=== PATIENT | female | born 1950 | race African-American/Black ===

== ENCOUNTER → 2016-08-26 | Outpatient (CLI) | payer OTHER ==
[~2016-08-26] MED LIST: ACET-66 PO; ALBU8.5H IH; AMLO-512 PO; ATEN50TA PO; ATOR40TA28 PO; FENO160 PO; FURO40 PO; IPRAHFA IH; LISI-662 PO; MOME13HF IH; MONT10TA21 PO; TERA1 PO
== END | disposition home or self-care (01) ==
LOC: RADPV 09:40
PROVIDERS: ATTEND Internal Medicine Nephrology
DX: N18.9 Chronic kidney disease, unspecified (principal); N28.1 Cyst of kidney, acquired
CPT/HCPCS: 76770

== ENCOUNTER 2016-11-18 07:34 | Day surgery (SDC) | payer OTHER ==
[~2016-11-18] VITALS: Ht 170.2 cm; Wt 58.6 kg
[~2016-11-18 07:34] MED LIST changes: -ACET-66 PO; -ALBU8.5H IH; -TERA1 PO
[2016-11-18] MEDS ORDERED: SODIUM CHLORIDE 0.9% 1,000 ML IV ONE ×2 (08:01→08:30)
[2016-11-18 08:34] LABS: CALCIUM, TOTAL 8.9 mg/dL (8.8-10.5); CREATININE 2.71 mg/dL (0.60-1.30); POTASSIUM 4.1 mmol/L (3.5-5.1)
[2016-11-18 08:41] LABS: INR 1.1 (0.9-1.1); PROTHROMBIN TIME 11.4 SEC (9.4-11.6)
[2016-11-18] MEDS ORDERED: ALBU8.5H IH (08:43)
[2016-11-18] MEDS ORDERED: TERA1 PO (08:43)
[2016-11-18] MEDS ORDERED: ACET-66 PO (08:43)
[2016-11-18] MEDS ORDERED: GELATIN SPONGE,ABSORBABLE 12-7 MM TP ONE (10:46)
[2016-11-18] MEDS ORDERED: LIDOCAINE HCL/PF 1% 30 ML VIAL ONE (10:46)
[2016-11-18] MEDS ORDERED: FentaNYL CITRATE-PF 100 MCG/2 ML VIAL ONE (10:46)
[2016-11-18] MEDS ORDERED: MIDAZOLAM HCL 2 MG/2 ML VIAL ONE (10:46)
[2016-11-18] MEDS ORDERED: MIDAZOLAM HCL 2 MG/2 ML VIAL IVP ONE (11:12)
[2016-11-18] MEDS ORDERED: FentaNYL CITRATE-PF 100 MCG/2 ML VIAL IVP ONE (11:13)
== END 2016-11-18 14:30 | disposition home or self-care (01) ==
LOC: SDS 07:34 → EDSTATUS 10:00 → SDS 14:30
PROVIDERS: ATTEND Internal Medicine Nephrology
DX: I12.9 Hypertensive chronic kidney disease with stage 1 through stage 4 chronic kidney disease, or unspecified chronic kidney disease (principal); N18.3 Chronic kidney disease, stage 3 (moderate); J44.9 Chronic obstructive pulmonary disease, unspecified; Z79.01 Long term (current) use of anticoagulants; Z87.09 Personal history of other diseases of the respiratory system; Z87.442 Personal history of urinary calculi
CPT/HCPCS: 36415; 50200; 77012; 80048; 85610; 85730; 88300; J2250; J3010; J7030; J3490

== ENCOUNTER 2018-01-30 17:04 | Emergency (ER) | payer MEDICARE, OTHER ==
[2018-01-30] VITALS (11 sets, daily range): BP systolic 140–169; BP diastolic 55–96
[~2018-01-30] VITALS: Ht 167.6 cm; Wt 54.1 kg
[~2018-01-30 17:04] MED LIST changes: -AMLO-512 PO; -ATEN50TA PO; +CARV6 PO; -FENO160 PO; -FURO40 PO; -IPRAHFA IH; -LISI-662 PO; +LOSA100T29 PO; +MINO2.5T3 PO; -MOME13HF IH; +NIFE60TA81 PO; +PANT40TA25 PO; +SEVEC800 PO; +TICA90TA PO
[2018-01-30 18:31] LABS: BASOPHILS % (AUTO) 0.6 % (0.0-2.0); EOSINOPHILS % (AUTO) 6.4 % (1.0-6.0); HEMATOCRIT 23.3 % (36-46); HEMOGLOBIN 7.9 g/dL (12.0-16.0); LYMPHOCYTES # (AUTO) 2.1 K/uL (1.0-4.8); LYMPHOCYTES % (AUTO) 19.4 % (22.0-44.0); MEAN CORPUSCULAR HEMOGLOBIN 31.5 pg (26.0-34.0); MEAN CORPUSCULAR HGB CONC 33.8 G/dL (31.0-37.0); MEAN CORPUSCULAR VOLUME 93 fL (80-100); MONOCYTES % (AUTO) 9.6 % (2.0-9.0); PLATELET COUNT (AUTO) 477 K/uL (150-450); RED CELL DISTRIBUTION WIDTH 17.1 % (11.5-14.5)
[2018-01-30 18:43] LABS: ANION GAP 11 mmol/L (8-16); CALCIUM, TOTAL 8.6 mg/dL (8.8-10.5); CARBON DIOXIDE 31 mmol/L (22-29); CHLORIDE 98 mmol/L (98-107); CREATININE 7.15 mg/dL (0.60-1.30); GLOMERULAR FILTR. RATE CALC 7 mL/min (>60); GLUCOSE,RANDOM 93 mg/dL (70-110); POTASSIUM 4.5 mmol/L (3.5-5.1); SODIUM SERUM 140 mmol/L (136-145); UREA NITROGEN, BLOOD 32 mg/dL (7-18)
[2018-01-30 18:46] LABS: PROTHROMBIN TIME 10.9 SEC (9.4-11.6)
[2018-01-30 18:56] LABS: ALANINE AMINOTRANSFERASE 14 U/L (12-78); ALBUMIN 3.6 g/dL (3.4-5.0); ALKALINE PHOSPHATASE 64 U/L (46-116); ASPARTATE AMINOTRANSFERASE 14 U/L (15-37); B-TYPE NATRIURETIC PEPTIDE 628 pg/mL (0-100); BILIRUBIN,TOTAL 0.4 mg/dL (0.1-1.0); CREATINE KINASE, TOTAL 63 U/L (26-192); TOTAL PROTEIN, SERUM 6.6 g/dL (6.4-8.2)
[2018-01-30] MEDS ORDERED: ACETAMINOPHEN 325 MG TABLET PO ONE (19:30)
[2018-01-30] MEDS ORDERED: SODIUM CHLORIDE 0.9% 1,000 ML IV ONE (19:43)
[2018-01-31 00:03] VITALS: BP 169/87
== END 2018-01-31 00:09 | disposition home or self-care (01) ==
LOC: EMS 17:04
DX: D64.9 Anemia, unspecified (principal); I12.0 Hypertensive chronic kidney disease with stage 5 chronic kidney disease or end stage renal disease; N18.6 End stage renal disease; F17.210 Nicotine dependence, cigarettes, uncomplicated; Z99.2 Dependence on renal dialysis
CPT/HCPCS: 36430; 71045; 80053; 82550; 83880; 84484; 85025; 85610; 85730; 86850; 86900; 86901; 86920; 93005; 99285; J7030; P9016

== ENCOUNTER 2018-03-13 18:17 | Emergency (ER) | payer MEDICARE, OTHER ==
[~2018-03-13] VITALS: Ht 167.6 cm; Wt 0.6 kg
[~2018-03-13 18:17] MED LIST changes: +FLUC100T PO; +LEVO750T21 PO; +LOSA100T20 PO; -LOSA100T29 PO; +PRED20 PO
[2018-03-13 19:05] LABS: BASOPHILS % (AUTO) 0.8 % (0.0-2.0); HEMATOCRIT 21.2 % (36-46); LYMPHOCYTES % (AUTO) 20.4 % (22.0-44.0); MEAN CORPUSCULAR HEMOGLOBIN 29.9 pg (26.0-34.0); MEAN CORPUSCULAR HGB CONC 33.2 G/dL (31.0-37.0); MEAN CORPUSCULAR VOLUME 90 fL (80-100); MONOCYTES # (AUTO) 1.1 K/uL (0.1-1.0); MONOCYTES % (AUTO) 11.5 % (2.0-9.0); NEUTROPHILS # (AUTO) 5.7 K/uL (1.8-7.7); NEUTROPHILS % (AUTO) 57.3 % (40.0-70.0); PLATELET COUNT (AUTO) 590 K/uL (150-450); RED BLOOD CELL COUNT(AUTO) 2.35 MIL/uL (4.00-5.20)
[2018-03-13 19:18] LABS: CREATININE 7.47 mg/dL (0.60-1.30); POTASSIUM 3.9 mmol/L (3.5-5.1)
[2018-03-13 19:27] LABS: ALBUMIN 3.2 g/dL (3.4-5.0); BILIRUBIN,TOTAL 0.3 mg/dL (0.1-1.0); TOTAL PROTEIN, SERUM 6.4 g/dL (6.4-8.2)
[2018-03-13 19:49] LABS: APPEARANCE,URINE CLOUDY (CLEAR); BILIRUBIN,URINE NEGATIVE (NEGATIVE); GLUCOSE, URINE (UA) NEGATIVE (NEGATIVE); KETONES,URINE NEGATIVE (NEGATIVE); LEUKOCYTE ESTERASE ,URINE TRACE (NEGATIVE); NITRATE,URINE NEGATIVE (NEGATIVE); OCCULT BLOOD,URINE SMALL (NEGATIVE); PROTEIN,URINE SEE CONFIRM (NEGATIVE); UROBILINOGEN,URINE 0.2 mg/dL (<=1.0)
[2018-03-13 21:05] LABS: SULFOSALICYLIC ACID,URINE 4+ (Negative)
[2018-03-13 21:06] LABS: BACTERIA,URINE Few /HPF (None Seen); RBC,URINE 0-2 /HPF (0-2); SQUAMOUS EPITHELIAL CELL,UR Moderate /LPF (None Seen)
[2018-03-13] MEDS ORDERED: SODIUM CHLORIDE 0.9% 1,000 ML IV ONE (21:35)
[2018-03-13 21:50] VITALS: BP 145/57
[2018-03-13 22:05] VITALS: BP 140/76
[2018-03-13 22:20] VITALS: BP 149/84
[2018-03-13 22:50] VITALS: BP 141/79
[2018-03-13 23:20] VITALS: BP 143/74
[2018-03-13 23:50] VITALS: BP 137/57
[2018-03-14 00:20] VITALS: BP 141/69
[2018-03-14 00:25] VITALS: BP 141/69
== END 2018-03-14 00:37 | disposition home or self-care (01) ==
LOC: EMS 18:18
DX: D64.9 Anemia, unspecified (principal); I12.0 Hypertensive chronic kidney disease with stage 5 chronic kidney disease or end stage renal disease; N18.6 End stage renal disease; Z99.2 Dependence on renal dialysis; Z88.8 Allergy status to other drugs, medicaments and biological substances; Z79.2 Long term (current) use of antibiotics; Z79.899 Other long term (current) drug therapy; J44.9 Chronic obstructive pulmonary disease, unspecified; Z98.890 Other specified postprocedural states
CPT/HCPCS: 36415; 36430; 80053; 81001; 82550; 83880; 84484; 85025; 86850; 86900; 86901; 86920; 93005; 99285; J7030; P9016

== ENCOUNTER 2018-04-06 06:43 | Inpatient (IN) | payer MEDICARE, OTHER ==
[~2018-04-06] VITALS: Ht 167.6 cm; Wt 56.9 kg
[2018-04-06] MEDS ORDERED: ADV250 IH (06:53)
[2018-04-06] MEDS ORDERED: TICA90TA PO (06:53)
[2018-04-06] MEDS ORDERED: ALBU8HFA IH (06:53)
[2018-04-06] MEDS ORDERED: NITROGLYCERIN 2% (1 GM=INCH) PACKET TP ONE (07:00)
[2018-04-06] MEDS ORDERED: ALBUTEROL SULFATE 5 MG/ML 20 ML NEB SOLN [BULK] NEB ONE (07:00)
[2018-04-06] MEDS ORDERED: IPRATROPIUM BROMIDE 0.5 MG/2.5 ML NEB SOLUTION NEB ONE (07:00)
[2018-04-06] MEDS ORDERED: MethylPREDNISolone SOD SUCC 125 MG/2 ML VIAL IVP ONE (07:00)
[2018-04-06] MEDS ORDERED: 0.9% SODIUM CHLORIDE 5 ML NEB SOLUTION NEB ONE (07:10)
[2018-04-06 07:39] LABS: BASOPHILS % (AUTO) 0.7 % (0.0-2.0); EOSINOPHILS % (AUTO) 4.7 % (1.0-6.0); HEMATOCRIT 30.6 % (36-46); HEMOGLOBIN 10.1 g/dL (12.0-16.0); LYMPHOCYTES # (AUTO) 0.9 K/uL (1.0-4.8); LYMPHOCYTES % (AUTO) 5.8 % (22.0-44.0); MEAN CORPUSCULAR HEMOGLOBIN 29.9 pg (26.0-34.0); MEAN CORPUSCULAR HGB CONC 32.9 G/dL (31.0-37.0); MEAN CORPUSCULAR VOLUME 91 fL (80-100); MONOCYTES # (AUTO) 0.6 K/uL (0.1-1.0); MONOCYTES % (AUTO) 3.6 % (2.0-9.0); NEUTROPHILS # (AUTO) 13.4 K/uL (1.8-7.7); PLATELET COUNT (AUTO) 359 K/uL (150-450); RED BLOOD CELL COUNT(AUTO) 3.37 MIL/uL (4.00-5.20); RED CELL DISTRIBUTION WIDTH 16.7 % (11.5-14.5)
[2018-04-06 07:43] LABS: NEUTROPHILS % (AUTO) 85.2 % (40.0-70.0)
[2018-04-06 07:45] LABS: CALCIUM, TOTAL 8.3 mg/dL (8.8-10.5); CREATININE 8.58 mg/dL (0.60-1.30); POTASSIUM 5.1 mmol/L (3.5-5.1)
[2018-04-06 08:10] LABS: ALBUMIN 3.6 g/dL (3.4-5.0); BILIRUBIN,TOTAL 0.6 mg/dL (0.1-1.0); TOTAL PROTEIN, SERUM 7.8 g/dL (6.4-8.2)
[2018-04-06] MEDS ORDERED: CARVEDILOL 3.125 MG TABLET PO ONE (08:30)
[2018-04-06] MEDS ORDERED: NIFEdipine 60 MG ER TABLET PO ONE (08:30)
[2018-04-06] MEDS ORDERED: ONDANSETRON HCL 4 MG/2 ML VIAL IVP PRN (08:30)
[2018-04-06] MEDS ORDERED: LOSARTAN POTASSIUM 50 MG TABLET PO ONE (08:30)
[2018-04-06] MEDS ORDERED: ACETAMINOPHEN 325 MG TABLET PO PRN ×2 (08:30→10:15)
[2018-04-06] MEDS ORDERED: BISACODYL 10 MG RECTAL RECTAL SUPPOSITORY PR PRN (10:15)
[2018-04-06 10:54] VITALS: BP 196/97
[2018-04-06] MEDS ORDERED: SEVEC800 PO (11:00)
[2018-04-06] MEDS ORDERED: ASPI81 PO (11:00)
[2018-04-06] MEDS ORDERED: LANT500 PO (11:00)
[2018-04-06] MEDS ORDERED: ALBUTEROL SULFATE 2.5 MG/0.5 ML NEB SOLUTION NEB SCH (11:00)
[2018-04-06] MEDS ORDERED: IPRATROPIUM BROMIDE 0.5 MG/2.5 ML NEB SOLUTION NEB SCH (11:00)
[2018-04-06] MEDS: CloNIDine HCL 0.1 MG TABLET PO PRN (11:03)
[2018-04-06] MEDS ORDERED: SODIUM CHLORIDE 0.9% 100 ML ONE (11:29)
[2018-04-06] MEDS: AZITHROMYCIN 500 MG/NS 250 ML IV SCH (11:33)
[2018-04-06] MEDS: MethylPREDNISolone SOD SUCC 125 MG/2 ML VIAL IVP SCH ×3 (11:33→23:25)
[2018-04-06] MEDS: ALBUTEROL SULFATE 2.5 MG/0.5 ML NEB SOLUTION NEB SCH ×4 (13:46→23:33)
[2018-04-06] MEDS: IPRATROPIUM BROMIDE 0.5 MG/2.5 ML NEB SOLUTION NEB SCH ×4 (13:47→23:33)
[2018-04-06 15:37] VITALS: BP 158/83
[2018-04-06] MEDS ORDERED: SODIUM CHLORIDE 0.9% 2,000 ML IV ONE (18:01)
[2018-04-06] MEDS ORDERED: PNEUMOCOCCAL VACCINE POLYVALENT 0.5 ML VIAL [PPSV23] IM ONE (18:30)
[2018-04-06] MEDS: DOCUSATE SODIUM 100 MG CAPSULE PO SCH (21:00)
[2018-04-06] MEDS: CARVEDILOL 12.5 MG TABLET PO SCH (21:44)
[2018-04-06] MEDS: HEPARIN SODIUM,PORCINE 5,000 UNITS/ML VIAL SQ SCH (21:44)
[2018-04-06] MEDS: TICAGRELOR 90 MG TABLET PO SCH (21:44)
[2018-04-06] MEDS: ATORVASTATIN CALCIUM 20 MG TABLET PO SCH (21:44)
[2018-04-06] MEDS ORDERED: HEPARIN SODIUM,PORCINE 1,000 UNITS/ML VIAL IVP ONE (22:20)
[2018-04-06 23:35] VITALS: BP 146/90
[2018-04-07] MEDS: IPRATROPIUM BROMIDE 0.5 MG/2.5 ML NEB SOLUTION NEB SCH ×6 (03:00→22:39)
[2018-04-07] MEDS: ALBUTEROL SULFATE 2.5 MG/0.5 ML NEB SOLUTION NEB SCH ×6 (03:00→22:39)
[2018-04-07 04:20] VITALS: BP 154/72
[2018-04-07] MEDS: MethylPREDNISolone SOD SUCC 125 MG/2 ML VIAL IVP SCH ×4 (05:51→23:28)
[2018-04-07 06:04] LABS: BASOPHILS % (AUTO) 0.3 % (0.0-2.0); EOSINOPHILS % (AUTO) 0 % (1.0-6.0); HEMOGLOBIN 8.8 g/dL (12.0-16.0); LYMPHOCYTES # (AUTO) 0.7 K/uL (1.0-4.8); LYMPHOCYTES % (AUTO) 5.2 % (22.0-44.0); MEAN CORPUSCULAR HEMOGLOBIN 30.4 pg (26.0-34.0); MEAN CORPUSCULAR HGB CONC 33.9 G/dL (31.0-37.0); MEAN CORPUSCULAR VOLUME 90 fL (80-100); MONOCYTES # (AUTO) 0.4 K/uL (0.1-1.0); PLATELET COUNT (AUTO) 304 K/uL (150-450); RED CELL DISTRIBUTION WIDTH 15.9 % (11.5-14.5)
[2018-04-07 06:20] LABS: CALCIUM, TOTAL 8.2 mg/dL (8.8-10.5); CREATININE 5.32 mg/dL (0.60-1.30); POTASSIUM 4.9 mmol/L (3.5-5.1)
[2018-04-07 06:29] LABS: NEUTROPHILS % (AUTO) 91.5 % (40.0-70.0)
[2018-04-07 07:42] VITALS: BP 152/69
[2018-04-07] MEDS: CARVEDILOL 12.5 MG TABLET PO SCH ×2 (08:43→20:20)
[2018-04-07] MEDS: LOSARTAN POTASSIUM 50 MG TABLET PO SCH (08:43)
[2018-04-07] MEDS: PANTOPRAZOLE SODIUM 40 MG DR TABLET PO SCH (08:43)
[2018-04-07] MEDS: ASPIRIN 81 MG CHEWABLE TABLET PO SCH (08:44)
[2018-04-07] MEDS: TICAGRELOR 90 MG TABLET PO SCH ×2 (08:44→20:20)
[2018-04-07] MEDS: HEPARIN SODIUM,PORCINE 5,000 UNITS/ML VIAL SQ SCH ×2 (08:44→20:21)
[2018-04-07] MEDS: DOCUSATE SODIUM 100 MG CAPSULE PO SCH ×2 (08:48→20:21)
[2018-04-07] MEDS: AZITHROMYCIN 500 MG/NS 250 ML IV SCH (11:00)
[2018-04-07] MEDS: OxyCODONE HCL/ACETAMINOPHEN 5-325 MG TABLET PO PRN ×2 (11:18→23:28)
[2018-04-07] MEDS: ONDANSETRON HCL 4 MG/2 ML VIAL IVP PRN (11:43)
[2018-04-07] MEDS: VITAMIN B COMP/VIT C/FOLIC ACID CAPSULE PO SCH (11:43)
[2018-04-07 11:46] VITALS: BP 144/86
[2018-04-07 11:49] LABS: PLATELET MORPHOLOGY COMMENT LARGE PLTS PRESENT
[2018-04-07 15:10] VITALS: BP 167/89
[2018-04-07 19:31] VITALS: BP 150/83
[2018-04-07] MEDS: ATORVASTATIN CALCIUM 20 MG TABLET PO SCH (20:21)
[2018-04-07 23:24] VITALS: BP 173/91
[2018-04-07] MEDS: CloNIDine HCL 0.1 MG TABLET PO PRN (23:30)
[2018-04-08] MEDS: IPRATROPIUM BROMIDE 0.5 MG/2.5 ML NEB SOLUTION NEB SCH ×6 (02:55→23:15)
[2018-04-08] MEDS: ALBUTEROL SULFATE 2.5 MG/0.5 ML NEB SOLUTION NEB SCH ×6 (02:55→23:15)
[2018-04-08 03:43] VITALS: BP 138/80
[2018-04-08] MEDS: MethylPREDNISolone SOD SUCC 125 MG/2 ML VIAL IVP SCH (05:18)
[2018-04-08 05:46] LABS: EOSINOPHILS % (AUTO) 0 % (1.0-6.0); HEMATOCRIT 22.9 % (36-46); HEMOGLOBIN 7.6 g/dL (12.0-16.0); LYMPHOCYTES # (AUTO) 0.6 K/uL (1.0-4.8); LYMPHOCYTES % (AUTO) 3.5 % (22.0-44.0); MEAN CORPUSCULAR HEMOGLOBIN 29.9 pg (26.0-34.0); MEAN CORPUSCULAR VOLUME 91 fL (80-100); MONOCYTES # (AUTO) 0.3 K/uL (0.1-1.0); MONOCYTES % (AUTO) 1.7 % (2.0-9.0); PLATELET COUNT (AUTO) 282 K/uL (150-450); RED BLOOD CELL COUNT(AUTO) 2.53 MIL/uL (4.00-5.20); RED CELL DISTRIBUTION WIDTH 16.2 % (11.5-14.5)
[2018-04-08 06:00] LABS: % IRON SATURATION 16.9 % (22-44)
[2018-04-08 06:02] LABS: CALCIUM, TOTAL 7.1 mg/dL (8.8-10.5); CREATININE 7.87 mg/dL (0.60-1.30); MAGNESIUM 2.2 mg/dL (1.80-2.40); PHOSPHORUS 6.7 mg/dL (2.5-4.9); POTASSIUM 5.5 mmol/L (3.5-5.1)
[2018-04-08 06:37] LABS: NEUTROPHILS % (AUTO) 94.8 % (40.0-70.0)
[2018-04-08 07:41] VITALS: BP 148/75
[2018-04-08] MEDS: ASPIRIN 81 MG CHEWABLE TABLET PO SCH (08:29)
[2018-04-08] MEDS: VITAMIN B COMP/VIT C/FOLIC ACID CAPSULE PO SCH (08:29)
[2018-04-08] MEDS: PANTOPRAZOLE SODIUM 40 MG DR TABLET PO SCH (08:29)
[2018-04-08] MEDS: DOCUSATE SODIUM 100 MG CAPSULE PO SCH ×2 (08:29→20:14)
[2018-04-08] MEDS: TICAGRELOR 90 MG TABLET PO SCH ×2 (08:29→20:13)
[2018-04-08] MEDS: LOSARTAN POTASSIUM 50 MG TABLET PO SCH (08:29)
[2018-04-08] MEDS: CARVEDILOL 12.5 MG TABLET PO SCH ×2 (08:29→20:14)
[2018-04-08] MEDS ORDERED: SODIUM POLYSTYRENE SULFONATE 15 GM/60 ML SUSPENSION BOTTLE PO ONE (08:45)
[2018-04-08] MEDS: HEPARIN SODIUM,PORCINE 5,000 UNITS/ML VIAL SQ SCH ×2 (09:00→20:34)
[2018-04-08] MEDS: AZITHROMYCIN 500 MG/NS 250 ML IV SCH (10:38)
[2018-04-08] MEDS: PredniSONE 20 MG TABLET PO SCH (10:38)
[2018-04-08] MEDS: OxyCODONE HCL/ACETAMINOPHEN 5-325 MG TABLET PO PRN ×2 (11:44→23:25)
[2018-04-08] MEDS: CALCIUM ACETATE 667 MG CAPSULE PO SCH ×2 (11:44→17:27)
[2018-04-08 11:48] VITALS: BP 154/80
[2018-04-08 15:35] VITALS: BP 183/94
[2018-04-08] MEDS: CloNIDine HCL 0.1 MG TABLET PO PRN ×2 (15:46→20:14)
[2018-04-08 17:44] LABS: CALCIUM, TOTAL 7.1 mg/dL (8.8-10.5); CREATININE 8.65 mg/dL (0.60-1.30); POTASSIUM 4.4 mmol/L (3.5-5.1)
[2018-04-08 19:36] VITALS: BP 188/81
[2018-04-08] MEDS: ATORVASTATIN CALCIUM 20 MG TABLET PO SCH (20:13)
[2018-04-08 22:59] VITALS: BP 163/85
[2018-04-09] VITALS (10 sets, daily range): BP systolic 159–214; BP diastolic 74–100
[2018-04-09] MEDS: ALBUTEROL SULFATE 2.5 MG/0.5 ML NEB SOLUTION NEB SCH ×6 (03:06→23:24)
[2018-04-09] MEDS: IPRATROPIUM BROMIDE 0.5 MG/2.5 ML NEB SOLUTION NEB SCH ×6 (03:06→23:24)
[2018-04-09 06:26] LABS: BASOPHILS % (AUTO) 0.1 % (0.0-2.0); EOSINOPHILS % (AUTO) 0.1 % (1.0-6.0); HEMATOCRIT 21.8 % (36-46); HEMOGLOBIN 7.4 g/dL (12.0-16.0); LYMPHOCYTES # (AUTO) 1.2 K/uL (1.0-4.8); LYMPHOCYTES % (AUTO) 6.8 % (22.0-44.0); MEAN CORPUSCULAR HEMOGLOBIN 29.8 pg (26.0-34.0); MEAN CORPUSCULAR HGB CONC 33.7 G/dL (31.0-37.0); MEAN CORPUSCULAR VOLUME 88 fL (80-100); MONOCYTES # (AUTO) 1.5 K/uL (0.1-1.0); MONOCYTES % (AUTO) 8.4 % (2.0-9.0); NEUTROPHILS # (AUTO) 14.6 K/uL (1.8-7.7); NEUTROPHILS % (AUTO) 84.6 % (40.0-70.0); PLATELET COUNT (AUTO) 272 K/uL (150-450); RED BLOOD CELL COUNT(AUTO) 2.47 MIL/uL (4.00-5.20); RED CELL DISTRIBUTION WIDTH 16.3 % (11.5-14.5)
[2018-04-09 06:35] LABS: CALCIUM, TOTAL 6.4 mg/dL (8.8-10.5); CREATININE 9.49 mg/dL (0.60-1.30); MAGNESIUM 2.2 mg/dL (1.80-2.40); PHOSPHORUS 7.5 mg/dL (2.5-4.9); POTASSIUM 3.9 mmol/L (3.5-5.1)
[2018-04-09] MEDS: HEPARIN SODIUM,PORCINE 5,000 UNITS/ML VIAL SQ SCH ×2 (08:23→21:48)
[2018-04-09] MEDS: CALCIUM ACETATE 667 MG CAPSULE PO SCH ×3 (08:23→17:25)
[2018-04-09] MEDS: VITAMIN B COMP/VIT C/FOLIC ACID CAPSULE PO SCH (08:23)
[2018-04-09] MEDS: PANTOPRAZOLE SODIUM 40 MG DR TABLET PO SCH (08:23)
[2018-04-09] MEDS: PredniSONE 20 MG TABLET PO SCH (08:23)
[2018-04-09] MEDS: DOCUSATE SODIUM 100 MG CAPSULE PO SCH ×2 (08:23→21:47)
[2018-04-09] MEDS: TICAGRELOR 90 MG TABLET PO SCH ×2 (08:23→21:47)
[2018-04-09] MEDS: ASPIRIN 81 MG CHEWABLE TABLET PO SCH (08:23)
[2018-04-09] MEDS: CARVEDILOL 12.5 MG TABLET PO SCH ×3 (08:30→21:49)
[2018-04-09] MEDS: LOSARTAN POTASSIUM 50 MG TABLET PO SCH ×2 (08:30→11:55)
[2018-04-09] MEDS ORDERED: HEPARIN SODIUM,PORCINE 1,000 UNITS/ML VIAL IVP ONE ×3 (09:00→12:41)
[2018-04-09] MEDS ORDERED: SODIUM CHLORIDE 0.9% 2,000 ML IV ONE (09:15)
[2018-04-09] MEDS: AZITHROMYCIN 500 MG/NS 250 ML IV SCH (11:57)
[2018-04-09] MEDS: EPOETIN ALFA 10,000 UNITS/ML 2 ML VIAL SQ SCH (11:57)
[2018-04-09] MEDS: ONDANSETRON HCL 4 MG/2 ML VIAL IVP PRN (12:04)
[2018-04-09] MEDS: CloNIDine HCL 0.1 MG TABLET PO PRN ×2 (17:25→23:17)
[2018-04-09 17:51] LABS: HEMATOCRIT 30.4 % (36-46); HEMOGLOBIN 10.3 g/dL (12.0-16.0)
[2018-04-09] MEDS: ATORVASTATIN CALCIUM 20 MG TABLET PO SCH (21:47)
[2018-04-09] MEDS: OxyCODONE HCL/ACETAMINOPHEN 5-325 MG TABLET PO PRN (21:47)
[2018-04-10] VITALS (19 sets, daily range): BP systolic 140–212; BP diastolic 71–95
[2018-04-10] MEDS: ALBUTEROL SULFATE 2.5 MG/0.5 ML NEB SOLUTION NEB SCH ×6 (03:35→22:37)
[2018-04-10] MEDS: IPRATROPIUM BROMIDE 0.5 MG/2.5 ML NEB SOLUTION NEB SCH ×6 (03:35→22:37)
[2018-04-10] MEDS: CloNIDine HCL 0.1 MG TABLET PO PRN ×4 (03:52→22:21)
[2018-04-10] MEDS ORDERED: CloNIDine HCL 0.1 MG TABLET PO ONE (05:30)
[2018-04-10 06:26] LABS: BASOPHILS % (AUTO) 0.2 % (0.0-2.0); EOSINOPHILS % (AUTO) 0.6 % (1.0-6.0); HEMATOCRIT 27.2 % (36-46); HEMOGLOBIN 9.1 g/dL (12.0-16.0); LYMPHOCYTES # (AUTO) 1.9 K/uL (1.0-4.8); LYMPHOCYTES % (AUTO) 14.5 % (22.0-44.0); MEAN CORPUSCULAR HGB CONC 33.5 G/dL (31.0-37.0); MEAN CORPUSCULAR VOLUME 89 fL (80-100); MONOCYTES # (AUTO) 1.4 K/uL (0.1-1.0); MONOCYTES % (AUTO) 10.6 % (2.0-9.0); NEUTROPHILS # (AUTO) 9.7 K/uL (1.8-7.7); NEUTROPHILS % (AUTO) 74.1 % (40.0-70.0); PLATELET COUNT (AUTO) 269 K/uL (150-450); RED BLOOD CELL COUNT(AUTO) 3.04 MIL/uL (4.00-5.20); RED CELL DISTRIBUTION WIDTH 15.5 % (11.5-14.5)
[2018-04-10 06:42] LABS: CALCIUM, TOTAL 7.4 mg/dL (8.8-10.5); CREATININE 7.55 mg/dL (0.60-1.30); POTASSIUM 4.4 mmol/L (3.5-5.1)
[2018-04-10 06:44] LABS: INR 1.1 (0.9-1.1); PROTHROMBIN TIME 11.6 SEC (9.4-11.6)
[2018-04-10] MEDS: LOSARTAN POTASSIUM 50 MG TABLET PO SCH (07:55)
[2018-04-10] MEDS: DOCUSATE SODIUM 100 MG CAPSULE PO SCH ×2 (07:55→20:47)
[2018-04-10] MEDS: CARVEDILOL 12.5 MG TABLET PO SCH ×2 (07:56→20:39)
[2018-04-10] MEDS: PredniSONE 20 MG TABLET PO SCH (07:56)
[2018-04-10] MEDS: VITAMIN B COMP/VIT C/FOLIC ACID CAPSULE PO SCH (07:56)
[2018-04-10] MEDS: PANTOPRAZOLE SODIUM 40 MG DR TABLET PO SCH (07:56)
[2018-04-10] MEDS: CALCIUM ACETATE 667 MG CAPSULE PO SCH ×3 (07:57→20:40)
[2018-04-10] MEDS: ASPIRIN 81 MG CHEWABLE TABLET PO SCH (07:57)
[2018-04-10] MEDS: TICAGRELOR 90 MG TABLET PO SCH ×2 (07:57→22:21)
[2018-04-10] MEDS: HEPARIN SODIUM,PORCINE 5,000 UNITS/ML VIAL SQ SCH ×2 (07:58→20:40)
[2018-04-10] MEDS ORDERED: SODIUM BICARBONATE 50 MEQ/50 ML VIAL ONE (11:54)
[2018-04-10] MEDS ORDERED: IOHEXOL 300 MG/ML 150 ML VIAL ONE (11:54)
[2018-04-10] MEDS ORDERED: LIDOCAINE/PF 1% 30 ML VIAL ONE (11:54)
[2018-04-10] MEDS ORDERED: HEPARIN SODIUM 1000 UNITS/NS 1,000 ML ONE (11:55)
[2018-04-10] MEDS ORDERED: MIDAZOLAM HCL 2 MG/2 ML VIAL ONE (12:54)
[2018-04-10] MEDS ORDERED: FentaNYL CITRATE-PF 100 MCG/2 ML VIAL ONE (12:54)
[2018-04-10] MEDS ORDERED: HEPARIN SODIUM 1000 UNITS/NS 1,000 ML IARTER ONE (12:57)
[2018-04-10] MEDS ORDERED: SODIUM CHLORIDE 0.9% 500 ML IV ONE (12:57)
[2018-04-10] MEDS ORDERED: IOHEXOL 300 MG/ML 150 ML VIAL IARTER ONE (13:00)
[2018-04-10] MEDS ORDERED: LIDOCAINE 1% 30 ML/SOD BICARB 8.4% 4 ML SQ ONE (13:00)
[2018-04-10] MEDS ORDERED: FentaNYL CITRATE-PF 100 MCG/2 ML VIAL IVP ONE (13:00)
[2018-04-10] MEDS ORDERED: MIDAZOLAM HCL 2 MG/2 ML VIAL IVP ONE (13:00)
[2018-04-10] MEDS ORDERED: TICAGRELOR 90 MG TABLET ONE ×2 (13:06→13:13)
[2018-04-10] MEDS ORDERED: IOHEXOL 300 MG/ML 50 ML VIAL ONE (13:06)
[2018-04-10] MEDS ORDERED: ASPIRIN 81 MG CHEWABLE TABLET ONE (13:06)
[2018-04-10] MEDS ORDERED: LABETALOL HCL 5 MG/ML 20 ML VIAL IVP ONE ×3 (13:07→13:45)
[2018-04-10] MEDS ORDERED: IOHEXOL 300 MG/ML 100 ML VIAL ONE (13:08)
[2018-04-10] MEDS ORDERED: HEPARIN SODIUM,PORCINE 5,000 UNITS/ML VIAL IVP ONE (13:15)
[2018-04-10] MEDS ORDERED: IOHEXOL 300 MG/ML 100 ML VIAL IARTER ONE (13:15)
[2018-04-10] MEDS ORDERED: IOHEXOL 300 MG/ML 50 ML VIAL IARTER ONE (13:15)
[2018-04-10] MEDS ORDERED: CARV12 PO (13:20)
[2018-04-10] MEDS ORDERED: TICAGRELOR 90 MG TABLET PO ONE (13:30)
[2018-04-10] MEDS ORDERED: ASPIRIN 81 MG CHEWABLE TABLET PO ONE (13:30)
[2018-04-10] MEDS ORDERED: HydrALAZINE HCL 20 MG/ML VIAL ONE (13:34)
[2018-04-10] MEDS ORDERED: HydrALAZINE HCL 20 MG/ML VIAL IVP ONE (13:45)
[2018-04-10] MEDS: ONDANSETRON HCL 4 MG/2 ML VIAL IVP PRN (14:56)
[2018-04-10] MEDS: AZITHROMYCIN 500 MG/NS 250 ML IV SCH (17:48)
[2018-04-10] MEDS: ATORVASTATIN CALCIUM 20 MG TABLET PO SCH (20:39)
[2018-04-11] VITALS: BP 178/82
[2018-04-11] MEDS: IPRATROPIUM BROMIDE 0.5 MG/2.5 ML NEB SOLUTION NEB SCH ×3 (02:42→10:34)
[2018-04-11] MEDS: ALBUTEROL SULFATE 2.5 MG/0.5 ML NEB SOLUTION NEB SCH ×3 (02:42→10:34)
[2018-04-11 04:00] VITALS: BP 179/85
[2018-04-11] MEDS: CloNIDine HCL 0.1 MG TABLET PO PRN ×2 (04:34→11:07)
[2018-04-11 04:44] LABS: BASOPHILS % (AUTO) 0.3 % (0.0-2.0); EOSINOPHILS % (AUTO) 1.9 % (1.0-6.0); HEMATOCRIT 26.9 % (36-46); HEMOGLOBIN 9.1 g/dL (12.0-16.0); LYMPHOCYTES # (AUTO) 1.9 K/uL (1.0-4.8); LYMPHOCYTES % (AUTO) 14.7 % (22.0-44.0); MEAN CORPUSCULAR HEMOGLOBIN 30.1 pg (26.0-34.0); MEAN CORPUSCULAR HGB CONC 33.9 G/dL (31.0-37.0); MEAN CORPUSCULAR VOLUME 89 fL (80-100); MONOCYTES # (AUTO) 1.5 K/uL (0.1-1.0); MONOCYTES % (AUTO) 11.7 % (2.0-9.0); NEUTROPHILS # (AUTO) 9.3 K/uL (1.8-7.7); NEUTROPHILS % (AUTO) 71.4 % (40.0-70.0); PLATELET COUNT (AUTO) 272 K/uL (150-450); RED BLOOD CELL COUNT(AUTO) 3.03 MIL/uL (4.00-5.20); RED CELL DISTRIBUTION WIDTH 15.5 % (11.5-14.5)
[2018-04-11 04:53] LABS: CALCIUM, TOTAL 7.6 mg/dL (8.8-10.5); CREATININE 9.24 mg/dL (0.60-1.30); POTASSIUM 4.9 mmol/L (3.5-5.1)
[2018-04-11 08:00] VITALS: BP 163/76
[2018-04-11] MEDS: ASPIRIN 81 MG CHEWABLE TABLET PO SCH (08:39)
[2018-04-11] MEDS: TICAGRELOR 90 MG TABLET PO SCH (08:39)
[2018-04-11] MEDS: CALCIUM ACETATE 667 MG CAPSULE PO SCH (08:39)
[2018-04-11] MEDS: DOCUSATE SODIUM 100 MG CAPSULE PO SCH (08:40)
[2018-04-11] MEDS: PANTOPRAZOLE SODIUM 40 MG DR TABLET PO SCH (08:40)
[2018-04-11] MEDS: VITAMIN B COMP/VIT C/FOLIC ACID CAPSULE PO SCH (08:40)
[2018-04-11] MEDS: PredniSONE 20 MG TABLET PO SCH (08:40)
[2018-04-11] MEDS: EPOETIN ALFA 10,000 UNITS/ML 2 ML VIAL SQ SCH (08:41)
[2018-04-11] MEDS: CARVEDILOL 12.5 MG TABLET PO SCH (08:44)
[2018-04-11] MEDS: LOSARTAN POTASSIUM 50 MG TABLET PO SCH (08:44)
[2018-04-11] MEDS: HEPARIN SODIUM,PORCINE 5,000 UNITS/ML VIAL SQ SCH (10:03)
[2018-04-11] MEDS ORDERED: CARV25 PO (11:46)
[2018-04-11] MEDS ORDERED: ASPI-1182 PO (11:47)
[2018-04-11] MEDS ORDERED: TICA90TA PO (11:47)
[2018-04-11] MEDS ORDERED: NIFE10 PO ×4 (11:48→12:05)
[2018-04-11] MEDS ORDERED: PRED-284 PO (11:50)
[2018-04-11] MEDS ORDERED: PRED5TAB PO ×2 (11:51→12:07)
[2018-04-11] MEDS ORDERED: PRED2.5T PO (11:52)
[2018-04-11] MEDS ORDERED: PRED20TA3 PO (11:57)
[2018-04-11] MEDS ORDERED: PRED5SOL PO (11:58)
[2018-04-11] MEDS ORDERED: PRED10TA3 PO ×2 (11:58→12:06)
[2018-04-11 12:00] VITALS: BP 160/72
[2018-04-11] MEDS ORDERED: HEPARIN SODIUM,PORCINE 1,000 UNITS/ML VIAL IVP ONE (12:34)
[2018-04-11] MEDS ORDERED: CARVEDILOL 25 MG TABLET PO SCH (21:00)
== END 2018-04-11 12:35 | disposition home or self-care (01) | DRG 280 ==
LOC: EMS 06:43 → 5S 09:51 → ICU 04-10 14:16
PROVIDERS: ADMIT Internal Medicine; ATTEND Internal Medicine
PROC: 5A1D70Z Performance of Urinary Filtration, Intermittent, Less than 6 Hours Per Day (ICD-10-PCS; 2018-04-06)
PROC: 30233N1 Transfusion of Nonautologous Red Blood Cells into Peripheral Vein, Percutaneous Approach (ICD-10-PCS; 2018-04-09)
PROC: 5A1D70Z Performance of Urinary Filtration, Intermittent, Less than 6 Hours Per Day (ICD-10-PCS; 2018-04-09)
PROC: 4A023N7 Measurement of Cardiac Sampling and Pressure, Left Heart, Percutaneous Approach (ICD-10-PCS; principal; 2018-04-10)
PROC: B2111ZZ Fluoroscopy of Multiple Coronary Arteries using Low Osmolar Contrast (ICD-10-PCS; 2018-04-10)
PROC: 5A1D70Z Performance of Urinary Filtration, Intermittent, Less than 6 Hours Per Day (ICD-10-PCS; 2018-04-10)
DX: I21.4 Non-ST elevation (NSTEMI) myocardial infarction (principal); J96.01 Acute respiratory failure with hypoxia; N18.6 End stage renal disease; E43 Unspecified severe protein-calorie malnutrition; J44.1 Chronic obstructive pulmonary disease with (acute) exacerbation; I13.2 Hypertensive heart and chronic kidney disease with heart failure and with stage 5 chronic kidney disease, or end stage renal disease; I50.32 Chronic diastolic (congestive) heart failure; J44.0 Chronic obstructive pulmonary disease with (acute) lower respiratory infection; I25.10 Atherosclerotic heart disease of native coronary artery without angina pectoris; J20.9 Acute bronchitis, unspecified; D63.1 Anemia in chronic kidney disease; E78.5 Hyperlipidemia, unspecified; Z53.8 Procedure and treatment not carried out for other reasons; E87.5 Hyperkalemia; Z95.5 Presence of coronary angioplasty implant and graft; Z99.2 Dependence on renal dialysis; Z87.891 Personal history of nicotine dependence; Z79.899 Other long term (current) drug therapy; Z68.20 Body mass index [BMI] 20.0-20.9, adult; Z88.8 Allergy status to other drugs, medicaments and biological substances; Z82.49 Family history of ischemic heart disease and other diseases of the circulatory system
CPT/HCPCS: 82271; 83540; 83550; 83735; 84100; 85014; 85018; 86850; 86900; 86901; 86920; 87081; 87340; 90732; 93005; 93306; 94640; 94644; 96374; 96375; 99291; G0378; J0360; J0456; J0885; J1644; J2250; J2405; J2930; J3010; J3490; J7030; J7050; P9016; Q9967

== ENCOUNTER 2018-05-07 10:44 | Inpatient (IN) | payer MEDICARE, OTHER ==
[~2018-05-07] VITALS: Ht 170.2 cm; Wt 62.7 kg
[2018-05-07] VITALS (10 sets, daily range): BP systolic 101–130; BP diastolic 56–69
[~2018-05-07 10:44] MED LIST changes: +ADV250 IH; +ALBU8HFA IH; +ASPI81 PO; +CARV25 PO; -CARV6 PO; -FLUC100T PO; +LANT500 PO; -LEVO750T21 PO; +NIFE10 PO; -NIFE60TA81 PO; -PANT40TA25 PO; +PRED10TA3 PO; -PRED20 PO; +PRED20TA3 PO; +PRED5TAB PO; -SEVEC800 PO
[2018-05-07 12:57] LABS: EOSINOPHILS % (AUTO) 0.3 % (1.0-6.0); LYMPHOCYTES # (AUTO) 1.3 K/uL (1.0-4.8); MEAN CORPUSCULAR HEMOGLOBIN 30.9 pg (26.0-34.0); MEAN CORPUSCULAR HGB CONC 32.7 G/dL (31.0-37.0); MEAN CORPUSCULAR VOLUME 95 fL (80-100); MONOCYTES # (AUTO) 0.7 K/uL (0.1-1.0); NEUTROPHILS # (AUTO) 7.4 K/uL (1.8-7.7); NEUTROPHILS % (AUTO) 77.7 % (40.0-70.0); PLATELET COUNT (AUTO) 365 K/uL (150-450); RED BLOOD CELL COUNT(AUTO) 2.19 MIL/uL (4.00-5.20); RED CELL DISTRIBUTION WIDTH 17.4 % (11.5-14.5)
[2018-05-07 13:05] LABS: HEMOGLOBIN 6.8 g/dL (12.0-16.0)
[2018-05-07 13:06] LABS: HEMATOCRIT 20.7 % (36-46)
[2018-05-07 13:08] LABS: INR 1.1 (0.9-1.1); PROTHROMBIN TIME 11.6 SEC (9.4-11.6)
[2018-05-07 13:09] LABS: CALCIUM, TOTAL 8.1 mg/dL (8.8-10.5); CREATININE 5.78 mg/dL (0.60-1.30); POTASSIUM 4.6 mmol/L (3.5-5.1)
[2018-05-07 13:18] LABS: ALBUMIN 2.9 g/dL (3.4-5.0); BILIRUBIN,TOTAL 0.3 mg/dL (0.1-1.0); TOTAL PROTEIN, SERUM 5.7 g/dL (6.4-8.2)
[2018-05-07] MEDS ORDERED: SODIUM CHLORIDE 0.9% 100 ML ONE (14:05)
[2018-05-07] MEDS ORDERED: IOVERSOL 320 MG/ML 100 ML VIAL ONE (14:05)
[2018-05-07] MEDS ORDERED: BARIUM SULFATE 0.1% SUSPENSION 450 ML BOTTLE PO ONE (14:15)
[2018-05-07] MEDS ORDERED: ALBUTEROL SULFATE 2.5 MG/0.5 ML NEB SOLUTION NEB PRN (16:45)
[2018-05-07] MEDS ORDERED: 0.9% SODIUM CHLORIDE 10 ML SYRINGE IVP PRN (16:45)
[2018-05-07] MEDS ORDERED: IPRATROPIUM BROMIDE 0.5 MG/2.5 ML NEB SOLUTION NEB PRN (16:45)
[2018-05-07] MEDS ORDERED: ZOLPIDEM TARTRATE 5 MG TABLET PO PRN (16:45)
[2018-05-07] MEDS: MONTELUKAST SODIUM 10 MG TABLET PO SCH (17:29)
[2018-05-07] MEDS: PANTOPRAZOLE SODIUM 40 MG/VIAL IVP SCH (17:29)
[2018-05-07] MEDS: MINOXIDIL 2.5 MG TABLET PO SCH (17:38)
[2018-05-07] MEDS: LANTHANUM CARBONATE 500 MG CHEW TABLET PO SCH (19:03)
[2018-05-07] MEDS: IPRATROPIUM BROMIDE 0.5 MG/2.5 ML NEB SOLUTION NEB SCH (20:00)
[2018-05-07] MEDS: ALBUTEROL SULFATE 2.5 MG/0.5 ML NEB SOLUTION NEB SCH (20:00)
[2018-05-07] MEDS ORDERED: SODIUM CHLORIDE 0.9% 1,000 ML IV ONE (20:01)
[2018-05-07] MEDS: CARVEDILOL 25 MG TABLET PO SCH (20:18)
[2018-05-07] MEDS: NIFEdipine 10 MG CAPSULE PO SCH (20:18)
[2018-05-07] MEDS: LOSARTAN POTASSIUM 50 MG TABLET PO SCH (20:18)
[2018-05-07] MEDS: ONDANSETRON HCL 4 MG/2 ML VIAL IVP PRN (20:19)
[2018-05-07 22:00] LABS: C.DIFF GDH ANTIGEN, Stool Negative (Negative); C.DIFF TOXINS A&B, Stool Negative (Negative)
[2018-05-08] VITALS (14 sets, daily range): BP systolic 109–154; BP diastolic 47–66
[2018-05-08] MEDS: ALBUTEROL SULFATE 2.5 MG/0.5 ML NEB SOLUTION NEB SCH ×4 (02:00→19:42)
[2018-05-08] MEDS: IPRATROPIUM BROMIDE 0.5 MG/2.5 ML NEB SOLUTION NEB SCH ×4 (02:00→19:42)
[2018-05-08 06:50] LABS: CALCIUM, TOTAL 7.3 mg/dL (8.8-10.5); CREATININE 7.86 mg/dL (0.60-1.30); MAGNESIUM 2.5 mg/dL (1.80-2.40); POTASSIUM 4.8 mmol/L (3.5-5.1)
[2018-05-08 07:23] LABS: BASOPHILS % (AUTO) 1.4 % (0.0-2.0); EOSINOPHILS % (AUTO) 4.4 % (1.0-6.0); LYMPHOCYTES # (AUTO) 1.3 K/uL (1.0-4.8); LYMPHOCYTES % (AUTO) 18.6 % (22.0-44.0); MEAN CORPUSCULAR HEMOGLOBIN 31.3 pg (26.0-34.0); MEAN CORPUSCULAR HGB CONC 33.8 G/dL (31.0-37.0); MEAN CORPUSCULAR VOLUME 93 fL (80-100); MONOCYTES # (AUTO) 0.9 K/uL (0.1-1.0); MONOCYTES % (AUTO) 13.3 % (2.0-9.0); NEUTROPHILS # (AUTO) 4.3 K/uL (1.8-7.7); NEUTROPHILS % (AUTO) 62.3 % (40.0-70.0); PLATELET COUNT (AUTO) 332 K/uL (150-450); RED BLOOD CELL COUNT(AUTO) 2.19 MIL/uL (4.00-5.20); RED CELL DISTRIBUTION WIDTH 17.7 % (11.5-14.5)
[2018-05-08 07:24] LABS: HEMATOCRIT 20.3 % (36-46); HEMOGLOBIN 6.9 g/dL (12.0-16.0)
[2018-05-08] MEDS: LANTHANUM CARBONATE 500 MG CHEW TABLET PO SCH ×3 (08:26→18:16)
[2018-05-08] MEDS: CARVEDILOL 25 MG TABLET PO SCH ×2 (08:26→21:48)
[2018-05-08] MEDS: PANTOPRAZOLE SODIUM 40 MG/VIAL IVP SCH (08:26)
[2018-05-08] MEDS: NIFEdipine 10 MG CAPSULE PO SCH ×3 (08:27→20:28)
[2018-05-08] MEDS: MINOXIDIL 2.5 MG TABLET PO SCH (08:27)
[2018-05-08] MEDS: MONTELUKAST SODIUM 10 MG TABLET PO SCH (08:27)
[2018-05-08] MEDS: ATORVASTATIN CALCIUM 40 MG TABLET PO SCH (08:27)
[2018-05-08] MEDS ORDERED: SODIUM CHLORIDE 0.9% 2,000 ML IV ONE ×2 (09:54→10:33)
[2018-05-08] MEDS ORDERED: SODIUM CHLORIDE 0.9% 250 ML IV ONE (14:19)
[2018-05-08] MEDS: FLUTICASONE/VILANTEROL 200-25 MCG/INH INHALER [14] IH SCH (16:11)
[2018-05-08] MEDS ORDERED: HEPARIN SODIUM,PORCINE 1,000 UNITS/ML VIAL IVP ONE ×2 (16:44)
[2018-05-08] MEDS ORDERED: PEG 3350/NA SULF,BICARB,CL/KCL 4000 ML SOLUTION PO ONE (18:00)
[2018-05-08] MEDS: LOSARTAN POTASSIUM 50 MG TABLET PO SCH (20:28)
[2018-05-09] VITALS (8 sets, daily range): BP systolic 128–160; BP diastolic 58–87
[2018-05-09] MEDS: ALBUTEROL SULFATE 2.5 MG/0.5 ML NEB SOLUTION NEB SCH ×4 (02:30→20:26)
[2018-05-09] MEDS: IPRATROPIUM BROMIDE 0.5 MG/2.5 ML NEB SOLUTION NEB SCH ×4 (02:30→20:26)
[2018-05-09 06:55] LABS: BASOPHILS % (AUTO) 1.5 % (0.0-2.0); EOSINOPHILS % (AUTO) 4.3 % (1.0-6.0); HEMATOCRIT 24.7 % (36-46); HEMOGLOBIN 8.3 g/dL (12.0-16.0); LYMPHOCYTES # (AUTO) 1.2 K/uL (1.0-4.8); LYMPHOCYTES % (AUTO) 16.4 % (22.0-44.0); MEAN CORPUSCULAR HEMOGLOBIN 31.1 pg (26.0-34.0); MEAN CORPUSCULAR HGB CONC 33.8 G/dL (31.0-37.0); MEAN CORPUSCULAR VOLUME 92 fL (80-100); MONOCYTES # (AUTO) 1.3 K/uL (0.1-1.0); MONOCYTES % (AUTO) 17.3 % (2.0-9.0); NEUTROPHILS # (AUTO) 4.5 K/uL (1.8-7.7); NEUTROPHILS % (AUTO) 60.5 % (40.0-70.0); PLATELET COUNT (AUTO) 343 K/uL (150-450); RED BLOOD CELL COUNT(AUTO) 2.68 MIL/uL (4.00-5.20); RED CELL DISTRIBUTION WIDTH 17.2 % (11.5-14.5)
[2018-05-09] MEDS: LANTHANUM CARBONATE 500 MG CHEW TABLET PO SCH ×3 (08:00→17:26)
[2018-05-09] MEDS: CARVEDILOL 25 MG TABLET PO SCH (08:34)
[2018-05-09] MEDS: NIFEdipine 10 MG CAPSULE PO SCH ×3 (08:34→21:22)
[2018-05-09] MEDS: FLUTICASONE/VILANTEROL 200-25 MCG/INH INHALER [14] IH SCH (08:34)
[2018-05-09] MEDS: PANTOPRAZOLE SODIUM 40 MG/VIAL IVP SCH (08:35)
[2018-05-09] MEDS: MONTELUKAST SODIUM 10 MG TABLET PO SCH (08:35)
[2018-05-09] MEDS: ATORVASTATIN CALCIUM 40 MG TABLET PO SCH (08:35)
[2018-05-09] MEDS: MINOXIDIL 2.5 MG TABLET PO SCH (08:35)
[2018-05-09] MEDS ORDERED: EPOETIN ALFA 10,000 UNITS/ML VIAL SQ SCH (09:00)
[2018-05-09] MEDS: ONDANSETRON HCL 4 MG/2 ML VIAL IVP PRN (09:52)
[2018-05-09] MEDS ORDERED: SODIUM CHLORIDE 0.9% 1,000 ML IV ONE ×2 (11:40→12:00)
[2018-05-09] MEDS: LOSARTAN POTASSIUM 50 MG TABLET PO SCH (21:22)
[2018-05-10] MEDS: CARVEDILOL 25 MG TABLET PO SCH ×2 (00:14→09:29)
[2018-05-10] MEDS: IPRATROPIUM BROMIDE 0.5 MG/2.5 ML NEB SOLUTION NEB SCH ×2 (01:51→09:33)
[2018-05-10] MEDS: ALBUTEROL SULFATE 2.5 MG/0.5 ML NEB SOLUTION NEB SCH ×2 (01:51→09:34)
[2018-05-10 05:09] VITALS: BP 184/84
[2018-05-10] MEDS ORDERED: PROPOFOL 1% 20 ML VIAL IVP ONE (05:52)
[2018-05-10] MEDS ORDERED: LIDOCAINE/PF 2% 5 ML VIAL IM ONE (05:52)
[2018-05-10 06:17] LABS: BASOPHILS % (AUTO) 1.3 % (0.0-2.0); EOSINOPHILS % (AUTO) 3.5 % (1.0-6.0); HEMATOCRIT 25.1 % (36-46); HEMOGLOBIN 8.5 g/dL (12.0-16.0); LYMPHOCYTES % (AUTO) 11.9 % (22.0-44.0); MEAN CORPUSCULAR HEMOGLOBIN 31.1 pg (26.0-34.0); MEAN CORPUSCULAR HGB CONC 33.7 G/dL (31.0-37.0); MEAN CORPUSCULAR VOLUME 92 fL (80-100); MONOCYTES # (AUTO) 1.1 K/uL (0.1-1.0); MONOCYTES % (AUTO) 13.2 % (2.0-9.0); NEUTROPHILS # (AUTO) 5.9 K/uL (1.8-7.7); NEUTROPHILS % (AUTO) 70.1 % (40.0-70.0); PLATELET COUNT (AUTO) 356 K/uL (150-450); RED BLOOD CELL COUNT(AUTO) 2.72 MIL/uL (4.00-5.20); RED CELL DISTRIBUTION WIDTH 17.5 % (11.5-14.5)
[2018-05-10 06:21] LABS: CALCIUM, TOTAL 7.3 mg/dL (8.8-10.5); CREATININE 7.41 mg/dL (0.60-1.30); PHOSPHORUS 4.2 mg/dL (2.5-4.9); POTASSIUM 4.6 mmol/L (3.5-5.1)
[2018-05-10 09:24] VITALS: BP 149/85
[2018-05-10] MEDS: PANTOPRAZOLE SODIUM 40 MG/VIAL IVP SCH (09:28)
[2018-05-10] MEDS: ATORVASTATIN CALCIUM 40 MG TABLET PO SCH (09:28)
[2018-05-10] MEDS: FLUTICASONE/VILANTEROL 200-25 MCG/INH INHALER [14] IH SCH (09:28)
[2018-05-10] MEDS: MINOXIDIL 2.5 MG TABLET PO SCH (09:28)
[2018-05-10] MEDS: LANTHANUM CARBONATE 500 MG CHEW TABLET PO SCH (09:29)
[2018-05-10] MEDS: MONTELUKAST SODIUM 10 MG TABLET PO SCH (09:29)
[2018-05-10] MEDS: NIFEdipine 10 MG CAPSULE PO SCH (09:29)
[2018-05-10 12:38] VITALS: BP 123/59
[2018-05-10] MEDS ORDERED: HEPARIN SODIUM,PORCINE 1,000 UNITS/ML VIAL IVP ONE (13:49)
== END 2018-05-10 13:50 | disposition home or self-care (01) | DRG 393 ==
LOC: EMS 10:45 → 5N 14:12 → 4E 05-09 18:00
PROVIDERS: ADMIT Internal Medicine; ATTEND Internal Medicine
PROC: 30233N1 Transfusion of Nonautologous Red Blood Cells into Peripheral Vein, Percutaneous Approach (ICD-10-PCS; 2018-05-07)
PROC: 5A1D70Z Performance of Urinary Filtration, Intermittent, Less than 6 Hours Per Day (ICD-10-PCS; 2018-05-08)
PROC: 0DJD8ZZ Inspection of Lower Intestinal Tract, Via Natural or Artificial Opening Endoscopic (ICD-10-PCS; principal; 2018-05-09 13:30)
PROC: 5A1D70Z Performance of Urinary Filtration, Intermittent, Less than 6 Hours Per Day (ICD-10-PCS; 2018-05-10)
DX: K64.8 Other hemorrhoids (principal); N18.6 End stage renal disease; I12.0 Hypertensive chronic kidney disease with stage 5 chronic kidney disease or end stage renal disease; J45.909 Unspecified asthma, uncomplicated; J44.9 Chronic obstructive pulmonary disease, unspecified; D63.1 Anemia in chronic kidney disease; I25.10 Atherosclerotic heart disease of native coronary artery without angina pectoris; D50.0 Iron deficiency anemia secondary to blood loss (chronic); E78.5 Hyperlipidemia, unspecified; F17.210 Nicotine dependence, cigarettes, uncomplicated; Z79.899 Other long term (current) drug therapy; Z95.5 Presence of coronary angioplasty implant and graft; Z99.2 Dependence on renal dialysis; Z79.82 Long term (current) use of aspirin
CPT/HCPCS: 74177; 82728; 83735; 84100; 86850; 86870; 86900; 86901; 86922; 87081; 87324; 87340; 87449; 89055; 93005; 94640; C9113; G0378; J0885; J1644; J2405; J2704; J3490; J7030; J7050; P9016

== ENCOUNTER 2018-08-29 14:37 | Emergency (ER) | payer MEDICARE, OTHER ==
[~2018-08-29] VITALS: Ht 167.6 cm; Wt 55.5 kg
[~2018-08-29 14:37] MED LIST changes: -LANT500 PO; +LANT500T7 PO; -LOSA100T20 PO; +LOSA100T58 PO; -PRED10TA3 PO; -PRED20TA3 PO; -PRED5TAB PO
[2018-08-29 15:36] LABS: BASOPHILS % (AUTO) 1.2 % (0.0-2.0); EOSINOPHILS % (AUTO) 7.7 % (1.0-6.0); HEMATOCRIT 29.7 % (36-46); HEMOGLOBIN 9.6 g/dL (12.0-16.0); LYMPHOCYTES # (AUTO) 1.7 K/uL (1.0-4.8); LYMPHOCYTES % (AUTO) 22.9 % (22.0-44.0); MEAN CORPUSCULAR HEMOGLOBIN 29.6 pg (26.0-34.0); MEAN CORPUSCULAR HGB CONC 32.3 G/dL (31.0-37.0); MEAN CORPUSCULAR VOLUME 92 fL (80-100); MONOCYTES % (AUTO) 13.3 % (2.0-9.0); NEUTROPHILS # (AUTO) 4.1 K/uL (1.8-7.7); NEUTROPHILS % (AUTO) 54.9 % (40.0-70.0); PLATELET COUNT (AUTO) 435 K/uL (150-450); RED BLOOD CELL COUNT(AUTO) 3.24 MIL/uL (4.00-5.20); RED CELL DISTRIBUTION WIDTH 23.2 % (11.5-14.5)
[2018-08-29 15:51] LABS: CALCIUM, TOTAL 9.1 mg/dL (8.8-10.5); CREATININE 5.89 mg/dL (0.60-1.30); POTASSIUM 4.2 mmol/L (3.5-5.1)
[2018-08-29 15:58] LABS: ALBUMIN 3.5 g/dL (3.4-5.0); BILIRUBIN,TOTAL 0.3 mg/dL (0.1-1.0); TOTAL PROTEIN, SERUM 7.3 g/dL (6.4-8.2)
[2018-08-29 17:15] LABS: PLATELET MORPHOLOGY COMMENT INCREASED
[2018-08-29 19:48] LABS: APPEARANCE,URINE CLOUDY (CLEAR); BILIRUBIN,URINE NEGATIVE (NEGATIVE); GLUCOSE, URINE (UA) NEGATIVE (NEGATIVE); KETONES,URINE NEGATIVE (NEGATIVE); LEUKOCYTE ESTERASE ,URINE TRACE (NEGATIVE); NITRATE,URINE NEGATIVE (NEGATIVE); OCCULT BLOOD,URINE TRACE (NEGATIVE); PROTEIN,URINE SEE CONFIRM (NEGATIVE); UROBILINOGEN,URINE 0.2 mg/dL (<=1.0)
[2018-08-29 20:01] LABS: BACTERIA,URINE Few /HPF (None Seen); SQUAMOUS EPITHELIAL CELL,UR Many /LPF (None Seen); SULFOSALICYLIC ACID,URINE 3+ (Negative)
[2018-08-29 20:07] VITALS: BP 125/65
== END 2018-08-29 20:44 | disposition home or self-care (01) ==
LOC: EMS 14:40
DX: D64.9 Anemia, unspecified (principal); R53.83 Other fatigue; J45.909 Unspecified asthma, uncomplicated; I12.0 Hypertensive chronic kidney disease with stage 5 chronic kidney disease or end stage renal disease; N18.6 End stage renal disease; Z99.2 Dependence on renal dialysis; Z87.891 Personal history of nicotine dependence; Z79.82 Long term (current) use of aspirin; Z88.8 Allergy status to other drugs, medicaments and biological substances
CPT/HCPCS: 86850; 86860; 86870; 86880; 86900; 86901; 86902; 86906; 86970; 86971; 86978; 86999; 93005

== ENCOUNTER 2018-09-23 21:30 | Inpatient (IN) | payer MEDICARE, OTHER ==
[~2018-09-23] VITALS: Ht 162.6 cm; Wt 55.4 kg
[2018-09-23] MEDS ORDERED: 0.9% SODIUM CHLORIDE 15 ML NEB SOLUTION NEB ONE (21:38)
[2018-09-23] MEDS ORDERED: IPRATROPIUM BROMIDE 0.5 MG/2.5 ML NEB SOLUTION NEB ONE (21:45)
[2018-09-23] MEDS ORDERED: ALBUTEROL SULFATE 5 MG/ML 20 ML NEB SOLN [BULK] NEB ONE (21:45)
[2018-09-23] MEDS ORDERED: MethylPREDNISolone SOD SUCC 125 MG/2 ML VIAL IVP ONE (21:45)
[2018-09-23 21:54] LABS: ABG A-A DIFF O2 227.8 mmHg (10-20.0); ABG BASE EXCESS -2.9 mmol/L (-2.0-3.0); ABG CARBOXYHEMOGLOBIN 3.5 % (0.0-1.5); ABG HCO3 21.7 mmol/L (22.0-26.0); ABG METHEMOGLOBIN 0.3 % (0.0-1.5); ABG OXYGEN SATURATION 99.7 % (95.0-98.0); ABG OXYHEMOGLOBIN 95.9 % (94.0-100.0); ABG PCO2 57 mmHg (35-45); ABG PH 7.247 (7.35-7.450); PO2, ARTERIAL BG 427.9 mmHg (79.0-87.0); SOURCE, BLOOD GAS ARTERIAL; TEMPERATURE, FAHRENHEIT, BG 98.6 FAHREN (96.0-98.6)
[2018-09-23 21:55] LABS: O2 DEVICE,BLOOD GAS BIPAP (ROOM AIR)
[2018-09-23 22:26] LABS: BASOPHILS % (AUTO) 0.8 % (0.0-2.0); EOSINOPHILS % (AUTO) 3.4 % (1.0-6.0); HEMATOCRIT 32.8 % (36-46); HEMOGLOBIN 10.1 g/dL (12.0-16.0); LYMPHOCYTES # (AUTO) 1.6 K/uL (1.0-4.8); LYMPHOCYTES % (AUTO) 8.5 % (22.0-44.0); MEAN CORPUSCULAR HEMOGLOBIN 27.7 pg (26.0-34.0); MEAN CORPUSCULAR HGB CONC 30.8 G/dL (31.0-37.0); MEAN CORPUSCULAR VOLUME 90 fL (80-100); MONOCYTES # (AUTO) 1.1 K/uL (0.1-1.0); MONOCYTES % (AUTO) 5.5 % (2.0-9.0); NEUTROPHILS # (AUTO) 15.7 K/uL (1.8-7.7); NEUTROPHILS % (AUTO) 81.8 % (40.0-70.0); PLATELET COUNT (AUTO) 392 K/uL (150-450); RED BLOOD CELL COUNT(AUTO) 3.64 MIL/uL (4.00-5.20); RED CELL DISTRIBUTION WIDTH 21.4 % (11.5-14.5)
[2018-09-23 22:44] LABS: B-TYPE NATRIURETIC PEPTIDE > 5000 pg/mL (0-100)
[2018-09-23 22:53] LABS: ALANINE AMINOTRANSFERASE 16 U/L (12-78); ALBUMIN 3.7 g/dL (3.4-5.0); ALKALINE PHOSPHATASE 67 U/L (46-116); ANION GAP 18 mmol/L (8-16); ASPARTATE AMINOTRANSFERASE 22 U/L (15-37); BILIRUBIN,TOTAL 0.6 mg/dL (0.1-1.0); CALCIUM, TOTAL 8.8 mg/dL (8.8-10.5); CARBON DIOXIDE 26 mmol/L (22-29); CHLORIDE 98 mmol/L (98-107); CREATININE 11.73 mg/dL (0.60-1.30); GLOMERULAR FILTR. RATE CALC 4 mL/min (>60); GLUCOSE,RANDOM 170 mg/dL (70-110); SODIUM SERUM 142 mmol/L (136-145); TOTAL PROTEIN, SERUM 7.9 g/dL (6.4-8.2); UREA NITROGEN, BLOOD 49 mg/dL (7-18)
[2018-09-23 22:56] LABS: POTASSIUM 6.5 mmol/L (3.5-5.1)
[2018-09-23] MEDS ORDERED: INSULIN REGULAR, HUMAN 100 UNITS/ML IVP ONE (23:15)
[2018-09-23] MEDS ORDERED: SODIUM POLYSTYRENE SULFONATE 15 GM/60 ML SUSPENSION BOTTLE PO ONE (23:15)
[2018-09-23] MEDS ORDERED: SODIUM BICARBONATE [ADULT] 8.4% 50 MEQ/50 ML SYRINGE IVP ONE (23:15)
[2018-09-23] MEDS ORDERED: FUROSEMIDE 40 MG/4 ML VIAL IVP ONE (23:15)
[2018-09-23] MEDS ORDERED: CALCIUM GLUCONATE 100 MG/ML 10 ML IVP ONE (23:15)
[2018-09-23] MEDS ORDERED: DEXTROSE 50%-WATER 25 GM/50 ML SYRINGE IVP ONE (23:15)
[2018-09-23 23:20] LABS: GLUCOSE,POINT OF CARE 115 MG/DL (70-110)
[2018-09-23 23:48] LABS: ABG BASE EXCESS 5.5 mmol/L (-2.0-3.0); ABG CARBOXYHEMOGLOBIN 2.7 % (0.0-1.5); ABG HCO3 28.7 mmol/L (22.0-26.0); ABG METHEMOGLOBIN 0.3 % (0.0-1.5); ABG OXYGEN CONTENT 13.7 mL/dL (15.0-23.0); ABG OXYGEN SATURATION 98.1 % (95.0-98.0); ABG OXYHEMOGLOBIN 95.2 % (94.0-100.0); ABG PCO2 51 mmHg (35-45); ABG PH 7.396 (7.35-7.450); ABG TOTAL HEMOGLOBIN 10.1 G/dL (12.0-18.0); SOURCE, BLOOD GAS ARTERIAL; TEMPERATURE, FAHRENHEIT, BG 98.6 FAHREN (96.0-98.6)
[2018-09-23 23:49] LABS: O2 DEVICE,BLOOD GAS BIPAP (ROOM AIR); SITE, BLOOD GAS LFT RADIAL
[2018-09-24] VITALS (7 sets, daily range): BP systolic 150–186; BP diastolic 73–93
[2018-09-24] MEDS ORDERED: LABETALOL HCL 5 MG/ML 20 ML VIAL IVP ONE
[2018-09-24] MEDS ORDERED: NITROGLYCERIN 2% (1 GM=INCH) PACKET TP ONE
[2018-09-24 00:03] LABS: SITE, BLOOD GAS LFT RADIAL
[2018-09-24] MEDS ORDERED: AZITHROMYCIN 500 MG/NS 250 ML IV ONE (00:15)
[2018-09-24] MEDS ORDERED: HydrALAZINE HCL 20 MG/ML VIAL IVP ONE (00:15)
[2018-09-24] MEDS ORDERED: CefTRIAXone 1 GM/DEXTROSE 50 ML IV ONE (00:15)
[2018-09-24] MEDS ORDERED: ONDANSETRON HCL 4 MG/2 ML VIAL IVP ONE (01:15)
[2018-09-24] MEDS ORDERED: ACETAMINOPHEN 325 MG TABLET PO PRN (01:15)
[2018-09-24] MEDS ORDERED: 0.9% SODIUM CHLORIDE 10 ML SYRINGE IVP PRN (01:15)
[2018-09-24] MEDS ORDERED: ONDANSETRON HCL 4 MG/2 ML VIAL IVP PRN (01:15)
[2018-09-24] MEDS ORDERED: ALBUTEROL SULFATE 2.5 MG/0.5 ML NEB SOLUTION NEB SCH (03:00)
[2018-09-24] MEDS ORDERED: IPRATROPIUM BROMIDE 0.5 MG/2.5 ML NEB SOLUTION NEB SCH (03:00)
[2018-09-24] MEDS ORDERED: ALBUTEROL SULFATE 2.5 MG/0.5 ML NEB SOLUTION NEB PRN (08:30)
[2018-09-24] MEDS ORDERED: BISACODYL 10 MG RECTAL RECTAL SUPPOSITORY PR PRN (08:30)
[2018-09-24] MEDS ORDERED: CloNIDine HCL 0.1 MG TABLET PO PRN (08:45)
[2018-09-24] MEDS ORDERED: HEPARIN SODIUM,PORCINE 5,000 UNITS/ML VIAL SQ SCH (09:00)
[2018-09-24] MEDS: DOCUSATE SODIUM 100 MG CAPSULE PO SCH ×3 (09:00→20:09)
[2018-09-24] MEDS: ASPIRIN 81 MG CHEWABLE TABLET PO SCH (11:24)
[2018-09-24] MEDS: TICAGRELOR 90 MG TABLET PO SCH ×2 (11:24→20:06)
[2018-09-24] MEDS: FAMOTIDINE 20 MG TABLET PO SCH (11:25)
[2018-09-24] MEDS: CARVEDILOL 12.5 MG TABLET PO SCH ×2 (11:25→20:06)
[2018-09-24] MEDS: ATORVASTATIN CALCIUM 40 MG TABLET PO SCH (11:25)
[2018-09-24] MEDS: LOSARTAN POTASSIUM 25 MG TABLET PO SCH ×2 (11:28→20:05)
[2018-09-24] MEDS ORDERED: HEPARIN SODIUM,PORCINE 1,000 UNITS/ML VIAL IVP ONE (16:52)
[2018-09-24] MEDS: ACETAMINOPHEN 325 MG TABLET PO PRN (18:51)
[2018-09-25 05:02] VITALS: BP 179/86
[2018-09-25 06:53] VITALS: BP 161/87
[2018-09-25 07:12] LABS: BASOPHILS % (AUTO) 0.5 % (0.0-2.0); EOSINOPHILS % (AUTO) 3.6 % (1.0-6.0); HEMATOCRIT 31.9 % (36-46); HEMOGLOBIN 10.2 g/dL (12.0-16.0); LYMPHOCYTES # (AUTO) 1.7 K/uL (1.0-4.8); LYMPHOCYTES % (AUTO) 9.5 % (22.0-44.0); MEAN CORPUSCULAR HEMOGLOBIN 28.6 pg (26.0-34.0); MEAN CORPUSCULAR HGB CONC 31.8 G/dL (31.0-37.0); MEAN CORPUSCULAR VOLUME 90 fL (80-100); MONOCYTES # (AUTO) 1.1 K/uL (0.1-1.0); MONOCYTES % (AUTO) 6.1 % (2.0-9.0); NEUTROPHILS # (AUTO) 14.6 K/uL (1.8-7.7); NEUTROPHILS % (AUTO) 80.3 % (40.0-70.0); PLATELET COUNT (AUTO) 429 K/uL (150-450); RED BLOOD CELL COUNT(AUTO) 3.55 MIL/uL (4.00-5.20); RED CELL DISTRIBUTION WIDTH 21.3 % (11.5-14.5)
[2018-09-25 07:28] LABS: ALBUMIN 3.6 g/dL (3.4-5.0); BILIRUBIN,TOTAL 0.6 mg/dL (0.1-1.0); CALCIUM, TOTAL 8.9 mg/dL (8.8-10.5); CREATININE 7.3 mg/dL (0.60-1.30); POTASSIUM 3.7 mmol/L (3.5-5.1); TOTAL PROTEIN, SERUM 7.5 g/dL (6.4-8.2)
[2018-09-25 07:57] VITALS: BP 181/100
[2018-09-25] MEDS: DOCUSATE SODIUM 100 MG CAPSULE PO SCH ×2 (09:00→21:00)
[2018-09-25] MEDS: CARVEDILOL 12.5 MG TABLET PO SCH ×2 (09:22→21:47)
[2018-09-25] MEDS: TICAGRELOR 90 MG TABLET PO SCH ×2 (09:22→21:46)
[2018-09-25] MEDS: ATORVASTATIN CALCIUM 40 MG TABLET PO SCH (09:22)
[2018-09-25] MEDS: LOSARTAN POTASSIUM 25 MG TABLET PO SCH ×2 (09:22→21:46)
[2018-09-25] MEDS: ASPIRIN 81 MG CHEWABLE TABLET PO SCH (09:22)
[2018-09-25] MEDS: FAMOTIDINE 20 MG TABLET PO SCH (09:22)
[2018-09-25] MEDS: ACETAMINOPHEN 325 MG TABLET PO PRN (09:51)
[2018-09-25 11:24] VITALS: BP 175/85
[2018-09-25] MEDS ORDERED: SODIUM CHLORIDE 0.9% 2,000 ML IV ONE (13:53)
[2018-09-25 15:13] VITALS: BP 121/79
[2018-09-25 16:38] LABS: APPEARANCE,URINE CLOUDY (CLEAR); BILIRUBIN,URINE NEGATIVE (NEGATIVE); GLUCOSE, URINE (UA) NEGATIVE (NEGATIVE); KETONES,URINE NEGATIVE (NEGATIVE); LEUKOCYTE ESTERASE ,URINE NEGATIVE (NEGATIVE); NITRATE,URINE NEGATIVE (NEGATIVE); OCCULT BLOOD,URINE MODERATE (NEGATIVE); PROTEIN,URINE SEE CONFIRM (NEGATIVE); UROBILINOGEN,URINE 0.2 mg/dL (<=1.0)
[2018-09-25 16:52] LABS: SULFOSALICYLIC ACID,URINE 4+ (Negative)
[2018-09-25 16:54] LABS: BACTERIA,URINE Few /HPF (None Seen); SQUAMOUS EPITHELIAL CELL,UR Moderate /LPF (None Seen); YEAST,URINE Rare /HPF (None Seen)
[2018-09-25] MEDS: OxyCODONE HCL/ACETAMINOPHEN 5-325 MG TABLET PO PRN ×2 (17:41→23:59)
[2018-09-25] MEDS: AmLODIPine BESYLATE 10 MG TABLET PO SCH (18:50)
[2018-09-25] MEDS: SERTRALINE HCL 50 MG TABLET PO SCH (18:51)
[2018-09-25 19:53] VITALS: BP 158/82
[2018-09-26] VITALS: BP 149/88
[2018-09-26 05:03] VITALS: BP 144/79
[2018-09-26 06:51] LABS: BASOPHILS % (AUTO) 0.6 % (0.0-2.0); EOSINOPHILS % (AUTO) 11.2 % (1.0-6.0); HEMATOCRIT 32.5 % (36-46); HEMOGLOBIN 10.2 g/dL (12.0-16.0); LYMPHOCYTES # (AUTO) 1.2 K/uL (1.0-4.8); LYMPHOCYTES % (AUTO) 10.5 % (22.0-44.0); MEAN CORPUSCULAR HEMOGLOBIN 28.4 pg (26.0-34.0); MEAN CORPUSCULAR HGB CONC 31.5 G/dL (31.0-37.0); MEAN CORPUSCULAR VOLUME 90 fL (80-100); MONOCYTES # (AUTO) 1.1 K/uL (0.1-1.0); MONOCYTES % (AUTO) 9.4 % (2.0-9.0); NEUTROPHILS % (AUTO) 68.3 % (40.0-70.0); PLATELET COUNT (AUTO) 433 K/uL (150-450); RED CELL DISTRIBUTION WIDTH 22.2 % (11.5-14.5)
[2018-09-26 07:04] LABS: CREATININE 5.55 mg/dL (0.60-1.30); POTASSIUM 3.9 mmol/L (3.5-5.1)
[2018-09-26 07:41] VITALS: BP 134/84
[2018-09-26] MEDS: DOCUSATE SODIUM 100 MG CAPSULE PO SCH (09:00)
[2018-09-26] MEDS: LOSARTAN POTASSIUM 25 MG TABLET PO SCH (09:09)
[2018-09-26] MEDS: SERTRALINE HCL 50 MG TABLET PO SCH (09:09)
[2018-09-26] MEDS: AmLODIPine BESYLATE 10 MG TABLET PO SCH (09:10)
[2018-09-26] MEDS: FAMOTIDINE 20 MG TABLET PO SCH (09:10)
[2018-09-26] MEDS: ASPIRIN 81 MG CHEWABLE TABLET PO SCH (09:10)
[2018-09-26] MEDS: ATORVASTATIN CALCIUM 40 MG TABLET PO SCH (09:10)
[2018-09-26] MEDS: TICAGRELOR 90 MG TABLET PO SCH (09:10)
[2018-09-26] MEDS: CARVEDILOL 12.5 MG TABLET PO SCH (09:10)
[2018-09-26 11:05] VITALS: BP 125/67
[2018-09-26] MEDS ORDERED: HEPARIN SODIUM,PORCINE 1,000 UNITS/ML VIAL ONE (17:34)
== END 2018-09-26 12:15 | disposition home or self-care (01) | DRG 291 ==
LOC: EMS 21:30 → 5S 09-24 00:01
PROVIDERS: ADMIT Internal Medicine; ATTEND Internal Medicine
PROC: 5A09357 Assistance with Respiratory Ventilation, Less than 24 Consecutive Hours, Continuous Positive Airway Pressure (ICD-10-PCS; principal; 2018-09-24)
PROC: 5A09357 Assistance with Respiratory Ventilation, Less than 24 Consecutive Hours, Continuous Positive Airway Pressure (ICD-10-PCS; 2018-09-24)
PROC: 5A1D70Z Performance of Urinary Filtration, Intermittent, Less than 6 Hours Per Day (ICD-10-PCS; 2018-09-24)
DX: I13.2 Hypertensive heart and chronic kidney disease with heart failure and with stage 5 chronic kidney disease, or end stage renal disease (principal); J96.90 Respiratory failure, unspecified, unspecified whether with hypoxia or hypercapnia; N18.6 End stage renal disease; I50.43 Acute on chronic combined systolic (congestive) and diastolic (congestive) heart failure; R65.10 Systemic inflammatory response syndrome (SIRS) of non-infectious origin without acute organ dysfunction; J44.1 Chronic obstructive pulmonary disease with (acute) exacerbation; I24.8 Other forms of acute ischemic heart disease; J44.0 Chronic obstructive pulmonary disease with (acute) lower respiratory infection; F41.9 Anxiety disorder, unspecified; E87.5 Hyperkalemia; I25.10 Atherosclerotic heart disease of native coronary artery without angina pectoris; I07.1 Rheumatic tricuspid insufficiency; D63.1 Anemia in chronic kidney disease; D64.9 Anemia, unspecified; Z87.891 Personal history of nicotine dependence; Z95.5 Presence of coronary angioplasty implant and graft; Z99.2 Dependence on renal dialysis; Z99.81 Dependence on supplemental oxygen; Z87.11 Personal history of peptic ulcer disease
CPT/HCPCS: 36600; 71250; 82805; 83735; 87040; 87081; 87340; 93005; 93306; 94640; 94644; 94660; 96374; 96375; 99291; G0378; J0360; J0456; J0610; J0696; J1644; J1815; J1940; J2405; J2930; J3490; J7030

== ENCOUNTER 2018-11-19 11:23 | Inpatient (IN) | payer MEDICARE, OTHER ==
[~2018-11-19] VITALS: Ht 162.6 cm; Wt 54.0 kg
[2018-11-19 12:49] LABS: GLUCOSE,POINT OF CARE 153 MG/DL (70-110)
[2018-11-19 13:01] LABS: BASOPHILS % (AUTO) 0.3 % (0.0-2.0); EOSINOPHILS % (AUTO) 0 % (1.0-6.0); LYMPHOCYTES # (AUTO) 0.8 K/uL (1.0-4.8); LYMPHOCYTES % (AUTO) 5.5 % (22.0-44.0); MEAN CORPUSCULAR HEMOGLOBIN 26.1 pg (26.0-34.0); MEAN CORPUSCULAR HGB CONC 32.8 G/dL (31.0-37.0); MEAN CORPUSCULAR VOLUME 80 fL (80-100); MONOCYTES # (AUTO) 0.3 K/uL (0.1-1.0); MONOCYTES % (AUTO) 2.4 % (2.0-9.0); NEUTROPHILS # (AUTO) 12.6 K/uL (1.8-7.7); PLATELET COUNT (AUTO) 339 K/uL (150-450); RED BLOOD CELL COUNT(AUTO) 2.07 MIL/uL (4.00-5.20); RED CELL DISTRIBUTION WIDTH 21.3 % (11.5-14.5)
[2018-11-19 13:05] LABS: HEMOGLOBIN 5.4 g/dL (12.0-16.0)
[2018-11-19 13:06] LABS: CALCIUM, TOTAL 8.6 mg/dL (8.8-10.5); CREATININE 4.27 mg/dL (0.60-1.30); HEMATOCRIT 16.5 % (36-46); NEUTROPHILS % (AUTO) 91.8 % (40.0-70.0); POTASSIUM 4.2 mmol/L (3.5-5.1)
[2018-11-19 13:11] LABS: ALBUMIN 3.3 g/dL (3.4-5.0); BILIRUBIN,TOTAL 0.3 mg/dL (0.1-1.0); TOTAL PROTEIN, SERUM 6.6 g/dL (6.4-8.2)
[2018-11-19] MEDS ORDERED: ALBUTEROL SULFATE 2.5 MG/0.5 ML NEB SOLUTION NEB PRN (14:00)
[2018-11-19] MEDS ORDERED: PANTOPRAZOLE SODIUM 40 MG DR TABLET PO SCH ×2 (14:00)
[2018-11-19] MEDS ORDERED: BISACODYL 10 MG RECTAL RECTAL SUPPOSITORY PR PRN (14:00)
[2018-11-19 15:10] LABS: PROTHROMBIN TIME 10.7 SEC (9.4-11.6)
[2018-11-19] MEDS ORDERED: EPOETIN ALFA 10,000 UNITS/ML VIAL SQ ONE (15:30)
[2018-11-19 18:01] VITALS: BP 137/68
[2018-11-19 19:38] VITALS: BP 132/66
[2018-11-19] MEDS: ACETAMINOPHEN 325 MG TABLET PO PRN (20:17)
[2018-11-19] MEDS: DOCUSATE SODIUM 100 MG CAPSULE PO SCH (20:18)
[2018-11-19] MEDS: PANTOPRAZOLE SODIUM 80 MG in SODIUM CHLORIDE 0.9% 100 ML IV SCH (20:19)
[2018-11-19] MEDS ORDERED: SODIUM CHLORIDE 0.9% 250 ML IV ONE (20:22)
[2018-11-19 23:35] VITALS: BP 136/73
[2018-11-20] VITALS (19 sets, daily range): BP systolic 128–169; BP diastolic 63–98
[2018-11-20] MEDS: PANTOPRAZOLE SODIUM 80 MG in SODIUM CHLORIDE 0.9% 100 ML IV SCH (06:58)
[2018-11-20] MEDS: DOCUSATE SODIUM 100 MG CAPSULE PO SCH ×2 (08:28→19:59)
[2018-11-20 09:40] LABS: BASOPHILS % (AUTO) 0.7 % (0.0-2.0); EOSINOPHILS % (AUTO) 2.8 % (1.0-6.0); LYMPHOCYTES # (AUTO) 1.9 K/uL (1.0-4.8); LYMPHOCYTES % (AUTO) 15.6 % (22.0-44.0); MEAN CORPUSCULAR HEMOGLOBIN 25.8 pg (26.0-34.0); MEAN CORPUSCULAR HGB CONC 31.9 G/dL (31.0-37.0); MEAN CORPUSCULAR VOLUME 81 fL (80-100); MONOCYTES # (AUTO) 1.2 K/uL (0.1-1.0); NEUTROPHILS # (AUTO) 8.5 K/uL (1.8-7.7); NEUTROPHILS % (AUTO) 70.9 % (40.0-70.0); PLATELET COUNT (AUTO) 400 K/uL (150-450); RED BLOOD CELL COUNT(AUTO) 2.08 MIL/uL (4.00-5.20)
[2018-11-20 09:44] LABS: HEMOGLOBIN 5.4 g/dL (12.0-16.0)
[2018-11-20 09:45] LABS: HEMATOCRIT 16.8 % (36-46)
[2018-11-20] MEDS ORDERED: SODIUM CHLORIDE 0.9% 250 ML IV ONE (09:54)
[2018-11-20] MEDS ORDERED: LIDOCAINE/PF 2% 5 ML VIAL INJ ONE (12:00)
[2018-11-20] MEDS ORDERED: PROPOFOL 1% 20 ML VIAL IVP ONE (12:00)
[2018-11-20] MEDS ORDERED: FentaNYL CITRATE-PF 100 MCG/2 ML VIAL ONE (15:20)
[2018-11-20] MEDS ORDERED: MIDAZOLAM HCL 5 MG/ML VIAL ONE (15:20)
[2018-11-20] MEDS ORDERED: SODIUM CHLORIDE 0.9% 1,000 ML IV ONE (15:30)
[2018-11-20] MEDS ORDERED: PEG 3350/NA SULF,BICARB,CL/KCL 4000 ML SOLUTION PO ONE (16:30)
[2018-11-20] MEDS: PANTOPRAZOLE SODIUM 40 MG DR TABLET PO SCH (16:54)
[2018-11-21 05:39] VITALS: BP 145/73
[2018-11-21 05:51] LABS: BASOPHILS % (AUTO) 0.6 % (0.0-2.0); EOSINOPHILS % (AUTO) 5.8 % (1.0-6.0); HEMATOCRIT 24.2 % (36-46); HEMOGLOBIN 8.1 g/dL (12.0-16.0); LYMPHOCYTES # (AUTO) 1.7 K/uL (1.0-4.8); LYMPHOCYTES % (AUTO) 11.8 % (22.0-44.0); MEAN CORPUSCULAR HEMOGLOBIN 28.3 pg (26.0-34.0); MEAN CORPUSCULAR HGB CONC 33.5 G/dL (31.0-37.0); MEAN CORPUSCULAR VOLUME 85 fL (80-100); MONOCYTES # (AUTO) 1.2 K/uL (0.1-1.0); MONOCYTES % (AUTO) 8.1 % (2.0-9.0); NEUTROPHILS # (AUTO) 10.6 K/uL (1.8-7.7); NEUTROPHILS % (AUTO) 73.7 % (40.0-70.0); PLATELET COUNT (AUTO) 384 K/uL (150-450); RED BLOOD CELL COUNT(AUTO) 2.86 MIL/uL (4.00-5.20); RED CELL DISTRIBUTION WIDTH 20.6 % (11.5-14.5)
[2018-11-21] MEDS: ACETAMINOPHEN 325 MG TABLET PO PRN ×2 (06:05→20:17)
[2018-11-21 06:32] LABS: CALCIUM, TOTAL 8.2 mg/dL (8.8-10.5); CREATININE 7.88 mg/dL (0.60-1.30); POTASSIUM 4.9 mmol/L (3.5-5.1)
[2018-11-21 07:36] VITALS: BP 164/90
[2018-11-21] MEDS: DOCUSATE SODIUM 100 MG CAPSULE PO SCH ×2 (07:50→20:17)
[2018-11-21] MEDS: PANTOPRAZOLE SODIUM 40 MG DR TABLET PO SCH (08:46)
[2018-11-21] MEDS: LOSARTAN POTASSIUM 50 MG TABLET PO SCH (08:46)
[2018-11-21] MEDS: CARVEDILOL 12.5 MG TABLET PO SCH ×2 (08:46→20:17)
[2018-11-21] MEDS ORDERED: EPOETIN ALFA 10,000 UNITS/ML VIAL SQ SCH (09:00)
[2018-11-21] MEDS ORDERED: SODIUM CHLORIDE 0.9% 0 ML IV ONE (11:39)
[2018-11-21] MEDS ORDERED: SODIUM CHLORIDE 0.9% 1,000 ML IV ONE (11:40)
[2018-11-21 11:45] VITALS: BP 167/76
[2018-11-21 13:24] VITALS: BP 171/86
[2018-11-21] MEDS ORDERED: 0.9% SODIUM CHLORIDE 5 ML NEB SOLUTION NEB ONE (15:57)
[2018-11-21] MEDS ORDERED: LIDOCAINE/PF 1% 2 ML VIAL IM ONE (18:28)
[2018-11-21 19:28] VITALS: BP 150/73
[2018-11-21 23:08] VITALS: BP 138/70
[2018-11-22 03:34] VITALS: BP 157/76
[2018-11-22] MEDS ORDERED: PROPOFOL 1% 20 ML VIAL IVP ONE (04:12)
[2018-11-22] MEDS ORDERED: LIDOCAINE/PF 2% 5 ML VIAL IM ONE (04:12)
[2018-11-22 06:00] LABS: BASOPHILS % (AUTO) 0.9 % (0.0-2.0); EOSINOPHILS % (AUTO) 10.1 % (1.0-6.0); HEMATOCRIT 24.6 % (36-46); HEMOGLOBIN 8.4 g/dL (12.0-16.0); LYMPHOCYTES # (AUTO) 1.6 K/uL (1.0-4.8); LYMPHOCYTES % (AUTO) 15.6 % (22.0-44.0); MEAN CORPUSCULAR HEMOGLOBIN 28.9 pg (26.0-34.0); MEAN CORPUSCULAR HGB CONC 34.2 G/dL (31.0-37.0); MEAN CORPUSCULAR VOLUME 85 fL (80-100); MONOCYTES # (AUTO) 1.1 K/uL (0.1-1.0); MONOCYTES % (AUTO) 10.8 % (2.0-9.0); NEUTROPHILS # (AUTO) 6.4 K/uL (1.8-7.7); NEUTROPHILS % (AUTO) 62.6 % (40.0-70.0); PLATELET COUNT (AUTO) 404 K/uL (150-450); RED CELL DISTRIBUTION WIDTH 21.2 % (11.5-14.5)
[2018-11-22 06:21] LABS: ALBUMIN 2.7 g/dL (3.4-5.0); BILIRUBIN,TOTAL 0.4 mg/dL (0.1-1.0); CREATININE 5.12 mg/dL (0.60-1.30); POTASSIUM 5.1 mmol/L (3.5-5.1)
[2018-11-22 07:48] VITALS: BP 159/66
[2018-11-22] MEDS: DOCUSATE SODIUM 100 MG CAPSULE PO SCH (09:06)
[2018-11-22] MEDS: LOSARTAN POTASSIUM 50 MG TABLET PO SCH (09:06)
[2018-11-22] MEDS: CARVEDILOL 12.5 MG TABLET PO SCH (09:06)
[2018-11-22] MEDS: PANTOPRAZOLE SODIUM 40 MG DR TABLET PO SCH (09:06)
== END 2018-11-22 10:15 | disposition home or self-care (01) | DRG 377 ==
LOC: EMS 11:26 → 5S 17:02 → EMS 17:28
PROVIDERS: ADMIT Internal Medicine; ATTEND Internal Medicine
PROC: 0DJ08ZZ Inspection of Upper Intestinal Tract, Via Natural or Artificial Opening Endoscopic (ICD-10-PCS; 2018-11-20)
PROC: 30233N1 Transfusion of Nonautologous Red Blood Cells into Peripheral Vein, Percutaneous Approach (ICD-10-PCS; principal; 2018-11-20 15:45)
PROC: 0DJD8ZZ Inspection of Lower Intestinal Tract, Via Natural or Artificial Opening Endoscopic (ICD-10-PCS; 2018-11-21)
PROC: 5A1D70Z Performance of Urinary Filtration, Intermittent, Less than 6 Hours Per Day (ICD-10-PCS; 2018-11-21)
DX: K57.31 Diverticulosis of large intestine without perforation or abscess with bleeding (principal); E43 Unspecified severe protein-calorie malnutrition; N18.6 End stage renal disease; I13.2 Hypertensive heart and chronic kidney disease with heart failure and with stage 5 chronic kidney disease, or end stage renal disease; I50.32 Chronic diastolic (congestive) heart failure; D63.1 Anemia in chronic kidney disease; E78.5 Hyperlipidemia, unspecified; F17.210 Nicotine dependence, cigarettes, uncomplicated; I25.10 Atherosclerotic heart disease of native coronary artery without angina pectoris; J44.9 Chronic obstructive pulmonary disease, unspecified; K64.8 Other hemorrhoids; K44.9 Diaphragmatic hernia without obstruction or gangrene; K64.4 Residual hemorrhoidal skin tags; Z86.79 Personal history of other diseases of the circulatory system; Z87.11 Personal history of peptic ulcer disease; Z88.8 Allergy status to other drugs, medicaments and biological substances; Z95.5 Presence of coronary angioplasty implant and graft; I25.2 Old myocardial infarction; Z99.2 Dependence on renal dialysis; Z68.20 Body mass index [BMI] 20.0-20.9, adult; Z84.1 Family history of disorders of kidney and ureter
CPT/HCPCS: 82271; 82948; 83036; 86850; 86870; 86900; 86901; 86922; 87081; 87340; 93005; 94640; 96372; C9113; G0378; J0885; J2250; J2704; J3010; J3490; J7030; J7050; P9016

== ENCOUNTER → 2019-08-21 | Outpatient (CLI) | payer MEDICARE, OTHER ==
[~2019-08-21] MED LIST changes: +ASPI-728 PO; -ASPI81 PO
== END | disposition home or self-care (01) ==
LOC: RADMN 08:31
PROVIDERS: ATTEND Internal Medicine Nephrology
DX: N20.0 Calculus of kidney (principal); N28.1 Cyst of kidney, acquired; D73.0 Hyposplenism
CPT/HCPCS: 74181

== ENCOUNTER 2020-03-17 11:02 | Inpatient (IN) | payer MEDICARE, OTHER ==
[~2020-03-17] VITALS: Ht 170.2 cm; Wt 53.7 kg
[~2020-03-17 11:02] MED LIST changes: -ADV250 IH; +FLUT1DIS6 IH; +MONT-35 PO; -MONT10TA21 PO
[2020-03-17] MEDS ORDERED: ALBUTEROL SULFATE HFA 90 MCG/PUFF 8 GM INHALER IH ONE (11:45)
[2020-03-17] MEDS ORDERED: OXYGEN THERAPY IH SCH ×2 (11:45→20:00)
[2020-03-17] MEDS ORDERED: ACETAMINOPHEN 500 MG TABLET PO ONE (11:45)
[2020-03-17] MEDS ORDERED: IPRATROPIUM BROMIDE HFA 17 MCG/PUFF 12.9 GM INHALER IH ONE (11:45)
[2020-03-17 12:30] LABS: COVID AG,FIA SOURCE NASOPHARYNGEAL
[2020-03-17 12:41] LABS: BASOPHILS % (AUTO) 0.6 % (0.0-2.0); EOSINOPHILS % (AUTO) 3.8 % (1.0-6.0); HEMOGLOBIN 12.6 g/dL (12.0-16.0); LYMPHOCYTES # (AUTO) 1.5 K/uL (1.0-4.8); LYMPHOCYTES % (AUTO) 11.8 % (22.0-44.0); MEAN CORPUSCULAR HEMOGLOBIN 31.5 pg (26.0-34.0); MEAN CORPUSCULAR HGB CONC 33.3 G/dL (31.0-37.0); MEAN CORPUSCULAR VOLUME 95 fL (80-100); MONOCYTES # (AUTO) 0.8 K/uL (0.1-1.0); MONOCYTES % (AUTO) 6.6 % (2.0-9.0); NEUTROPHILS # (AUTO) 9.7 K/uL (1.8-7.7); NEUTROPHILS % (AUTO) 77.2 % (40.0-70.0); PLATELET COUNT (AUTO) 301 K/uL (150-450); RED BLOOD CELL COUNT(AUTO) 4.02 MIL/uL (4.00-5.20); RED CELL DISTRIBUTION WIDTH 18.3 % (11.5-14.5)
[2020-03-17 12:49] LABS: CALCIUM, TOTAL 9.2 mg/dL (8.8-10.5); CREATININE 4.78 mg/dL (0.60-1.30); POTASSIUM 4.9 mmol/L (3.5-5.1)
[2020-03-17 12:58] LABS: D-DIMER 0.68 mg/L FEU (0.00-0.50)
[2020-03-17 12:59] LABS: LACTIC ACID 1.2 mmol/L (0.4-2.0)
[2020-03-17 13:06] LABS: ALBUMIN 3.8 g/dL (3.4-5.0); BILIRUBIN,TOTAL 0.6 mg/dL (0.1-1.0); C-REACTIVE PROTEIN QUANT 2.37 mg/dL (0.00-0.30); MAGNESIUM 2.2 mg/dL (1.80-2.40); TOTAL PROTEIN, SERUM 8.2 g/dL (6.4-8.2)
[2020-03-17 13:34] LABS: INFLUENZA TYPE A POSITIVE FOR TYPE A (NEGATIVE); INFLUENZA TYPE B NEGATIVE FOR TYPE B (NEGATIVE)
[2020-03-17] MEDS ORDERED: ACETAMINOPHEN 325 MG TABLET PO PRN (14:45)
[2020-03-17] MEDS ORDERED: OSELTAMIVIR PHOSPHATE 30 MG CAPSULE PO ONE (14:45)
[2020-03-17] MEDS ORDERED: ONDANSETRON HCL 4 MG/2 ML VIAL IVP PRN (14:45)
[2020-03-17] MEDS ORDERED: OSELTAMIVIR PHOSPHATE 75 MG CAPSULE PO ONE (14:45)
[2020-03-17] MEDS ORDERED: BISACODYL 10 MG RECTAL RECTAL SUPPOSITORY PR PRN (15:15)
[2020-03-17] MEDS ORDERED: MAGNESIUM HYDROXIDE SUSPENSION 30 ML UDCUP PO PRN (15:15)
[2020-03-17] MEDS ORDERED: HYDROCODONE/ACETAMINOPHEN 5-325 MG TABLET PO PRN (15:15)
[2020-03-17] MEDS ORDERED: MORPHINE SULFATE 2 MG/ML SYRINGE IVP PRN (15:15)
[2020-03-17] MEDS ORDERED: OSELTAMIVIR PHOSPHATE 30 MG CAPSULE PO PRN (15:30)
[2020-03-17 16:01] VITALS: BP 194/80
[2020-03-17] MEDS: NIFEdipine 10 MG CAPSULE PO SCH ×2 (16:51→20:42)
[2020-03-17] MEDS ORDERED: ALPRAZolam 0.5 MG TABLET PO PRN (18:00)
[2020-03-17] MEDS: LANTHANUM CARBONATE 500 MG CHEW TABLET PO SCH (18:31)
[2020-03-17] MEDS: HEPARIN SODIUM,PORCINE 5,000 UNITS/ML VIAL SQ SCH (18:32)
[2020-03-17] MEDS: MethylPREDNISolone SOD SUCC 40 MG/ML VIAL IVP SCH (18:39)
[2020-03-17] MEDS: ALBUTEROL SULFATE 2.5 MG/0.5 ML NEB SOLUTION NEB SCH ×2 (19:00→22:00)
[2020-03-17 19:39] VITALS: BP 145/63
[2020-03-17] MEDS: LOSARTAN POTASSIUM 50 MG TABLET PO SCH (20:41)
[2020-03-17] MEDS: DOCUSATE SODIUM 100 MG CAPSULE PO SCH (20:41)
[2020-03-17] MEDS: ACETAMINOPHEN 325 MG TABLET PO PRN (20:42)
[2020-03-17] MEDS: ONDANSETRON HCL 4 MG/2 ML VIAL IVP PRN (20:43)
[2020-03-17] MEDS: CARVEDILOL 25 MG TABLET PO SCH (20:43)
[2020-03-17] MEDS: TICAGRELOR 90 MG TABLET PO SCH (20:43)
[2020-03-17] MEDS: 0.9% SODIUM CHLORIDE 10 ML SYRINGE IVP PRN (20:44)
[2020-03-17] MEDS ORDERED: OSELTAMIVIR PHOSPHATE 75 MG CAPSULE PO SCH (21:00)
[2020-03-17 21:45] VITALS: BP 132/67
[2020-03-17 23:20] VITALS: BP 138/69
[2020-03-18] MEDS: MethylPREDNISolone SOD SUCC 40 MG/ML VIAL IVP SCH ×3 (00:40→21:04)
[2020-03-18] MEDS: 0.9% SODIUM CHLORIDE 10 ML SYRINGE IVP PRN (00:41)
[2020-03-18] MEDS: HEPARIN SODIUM,PORCINE 5,000 UNITS/ML VIAL SQ SCH ×3 (00:42→21:04)
[2020-03-18 05:04] VITALS: BP 138/54
[2020-03-18 06:49] LABS: BASOPHILS % (AUTO) 0.1 % (0.0-2.0); EOSINOPHILS % (AUTO) 0.1 % (1.0-6.0); HEMOGLOBIN 13.5 g/dL (12.0-16.0); LYMPHOCYTES # (AUTO) 0.5 K/uL (1.0-4.8); LYMPHOCYTES % (AUTO) 5.5 % (22.0-44.0); MEAN CORPUSCULAR HEMOGLOBIN 31.8 pg (26.0-34.0); MEAN CORPUSCULAR HGB CONC 33.6 G/dL (31.0-37.0); MEAN CORPUSCULAR VOLUME 95 fL (80-100); MONOCYTES # (AUTO) 0.1 K/uL (0.1-1.0); MONOCYTES % (AUTO) 1.3 % (2.0-9.0); NEUTROPHILS # (AUTO) 9.1 K/uL (1.8-7.7); PLATELET COUNT (AUTO) 340 K/uL (150-450); RED BLOOD CELL COUNT(AUTO) 4.22 MIL/uL (4.00-5.20); RED CELL DISTRIBUTION WIDTH 19.1 % (11.5-14.5)
[2020-03-18 06:56] LABS: CREATININE 6.87 mg/dL (0.60-1.30)
[2020-03-18 07:14] LABS: POTASSIUM 6.2 mmol/L (3.5-5.1)
[2020-03-18] MEDS: LANTHANUM CARBONATE 500 MG CHEW TABLET PO SCH ×3 (08:00→18:00)
[2020-03-18 08:14] VITALS: BP 200/70
[2020-03-18] MEDS: MONTELUKAST SODIUM 10 MG TABLET PO SCH (08:20)
[2020-03-18] MEDS: ASPIRIN 81 MG CHEWABLE TABLET PO SCH (08:20)
[2020-03-18] MEDS: DOCUSATE SODIUM 100 MG CAPSULE PO SCH ×2 (08:20→21:04)
[2020-03-18] MEDS: PANTOPRAZOLE SODIUM 40 MG DR TABLET PO SCH (08:21)
[2020-03-18] MEDS: MINOXIDIL 2.5 MG TABLET PO SCH (08:21)
[2020-03-18] MEDS: TICAGRELOR 90 MG TABLET PO SCH ×2 (08:21→21:05)
[2020-03-18] MEDS: CARVEDILOL 25 MG TABLET PO SCH ×2 (08:21→21:08)
[2020-03-18] MEDS: NIFEdipine 30 MG ER TABLET PO SCH (08:21)
[2020-03-18] MEDS: ATORVASTATIN CALCIUM 40 MG TABLET PO SCH (08:21)
[2020-03-18] MEDS ORDERED: -HEMODIALYSIS NOTE- MISC SCH (09:00)
[2020-03-18] MEDS ORDERED: 0.9% SODIUM CHLORIDE 15 ML NEB SOLUTION NEB ONE (09:06)
[2020-03-18] MEDS: ALBUTEROL SULFATE 2.5 MG/0.5 ML NEB SOLUTION NEB SCH ×4 (09:11→16:07)
[2020-03-18 09:59] VITALS: BP 171/83
[2020-03-18] MEDS ORDERED: 0.9% SODIUM CHLORIDE 5 ML NEB SOLUTION NEB ONE ×2 (12:52→15:32)
[2020-03-18] MEDS ORDERED: SODIUM CHLORIDE 0.9% 2,000 ML ONE (13:24)
[2020-03-18 15:34] VITALS: BP 168/80
[2020-03-18 17:55] LABS: MAGNESIUM 2.4 mg/dL (1.80-2.40)
[2020-03-18] MEDS: ACETAMINOPHEN 325 MG TABLET PO PRN (21:03)
[2020-03-18] MEDS: LOSARTAN POTASSIUM 50 MG TABLET PO SCH (21:04)
[2020-03-18] MEDS: ZOLPIDEM TARTRATE 5 MG TABLET PO PRN (23:05)
[2020-03-18 23:48] VITALS: BP 15/78
[2020-03-19] MEDS ORDERED: 0.9% SODIUM CHLORIDE 5 ML NEB SOLUTION NEB ONE ×4 (01:22→20:50)
[2020-03-19] MEDS: ALBUTEROL SULFATE 2.5 MG/0.5 ML NEB SOLUTION NEB PRN ×4 (01:25→20:57)
[2020-03-19 04:26] VITALS: BP 152/59
[2020-03-19 06:10] LABS: BASOPHILS % (AUTO) 0.2 % (0.0-2.0); EOSINOPHILS % (AUTO) 0 % (1.0-6.0); HEMATOCRIT 36.2 % (36-46); HEMOGLOBIN 11.9 g/dL (12.0-16.0); LYMPHOCYTES % (AUTO) 5.1 % (22.0-44.0); MEAN CORPUSCULAR HEMOGLOBIN 31.4 pg (26.0-34.0); MEAN CORPUSCULAR HGB CONC 32.9 G/dL (31.0-37.0); MEAN CORPUSCULAR VOLUME 96 fL (80-100); MONOCYTES # (AUTO) 1.2 K/uL (0.1-1.0); MONOCYTES % (AUTO) 6.1 % (2.0-9.0); NEUTROPHILS # (AUTO) 17.1 K/uL (1.8-7.7); PLATELET COUNT (AUTO) 356 K/uL (150-450); RED BLOOD CELL COUNT(AUTO) 3.78 MIL/uL (4.00-5.20)
[2020-03-19 06:45] LABS: CALCIUM, TOTAL 8.3 mg/dL (8.8-10.5); CREATININE 4.62 mg/dL (0.60-1.30)
[2020-03-19 06:52] LABS: NEUTROPHILS % (AUTO) 88.6 % (40.0-70.0)
[2020-03-19 07:25] VITALS: BP 154/63
[2020-03-19] MEDS: LANTHANUM CARBONATE 500 MG CHEW TABLET PO SCH ×3 (08:00→17:49)
[2020-03-19] MEDS: DOCUSATE SODIUM 100 MG CAPSULE PO SCH ×2 (09:00→20:41)
[2020-03-19] MEDS: TICAGRELOR 90 MG TABLET PO SCH ×2 (09:12→20:42)
[2020-03-19] MEDS: NIFEdipine 30 MG ER TABLET PO SCH (09:12)
[2020-03-19] MEDS: MONTELUKAST SODIUM 10 MG TABLET PO SCH (09:13)
[2020-03-19] MEDS: ATORVASTATIN CALCIUM 40 MG TABLET PO SCH (09:13)
[2020-03-19] MEDS: MINOXIDIL 2.5 MG TABLET PO SCH (09:13)
[2020-03-19] MEDS: PANTOPRAZOLE SODIUM 40 MG DR TABLET PO SCH (09:13)
[2020-03-19] MEDS: HEPARIN SODIUM,PORCINE 5,000 UNITS/ML VIAL SQ SCH ×2 (09:13→20:42)
[2020-03-19] MEDS: ASPIRIN 81 MG CHEWABLE TABLET PO SCH (09:13)
[2020-03-19] MEDS: MethylPREDNISolone SOD SUCC 40 MG/ML VIAL IVP SCH (09:14)
[2020-03-19] MEDS: ACETAMINOPHEN 325 MG TABLET PO PRN ×3 (09:18→20:43)
[2020-03-19 11:10] VITALS: BP 145/86
[2020-03-19] MEDS: CARVEDILOL 25 MG TABLET PO SCH ×2 (13:39→20:42)
[2020-03-19 15:45] VITALS: BP 144/95
[2020-03-19] MEDS ORDERED: LIDOCAINE/PF 1% 2 ML VIAL IM ONE (16:41)
[2020-03-19] MEDS: ONDANSETRON HCL 4 MG/2 ML VIAL IVP PRN (16:59)
[2020-03-19 20:02] VITALS: BP 158/63
[2020-03-19] MEDS: LOSARTAN POTASSIUM 50 MG TABLET PO SCH (21:20)
[2020-03-19] MEDS: ZOLPIDEM TARTRATE 5 MG TABLET PO PRN (21:20)
[2020-03-20 00:08] VITALS: BP 159/74
[2020-03-20] MEDS: ACETAMINOPHEN 325 MG TABLET PO PRN (03:22)
[2020-03-20 04:42] VITALS: BP 156/64
[2020-03-20 05:59] LABS: BASOPHILS % (AUTO) 0.3 % (0.0-2.0); EOSINOPHILS % (AUTO) 0.1 % (1.0-6.0); HEMATOCRIT 35.9 % (36-46); HEMOGLOBIN 11.6 g/dL (12.0-16.0); LYMPHOCYTES # (AUTO) 1.7 K/uL (1.0-4.8); LYMPHOCYTES % (AUTO) 9.1 % (22.0-44.0); MEAN CORPUSCULAR HEMOGLOBIN 30.9 pg (26.0-34.0); MEAN CORPUSCULAR HGB CONC 32.4 G/dL (31.0-37.0); MEAN CORPUSCULAR VOLUME 95 fL (80-100); MONOCYTES # (AUTO) 1.4 K/uL (0.1-1.0); MONOCYTES % (AUTO) 7.5 % (2.0-9.0); NEUTROPHILS # (AUTO) 15.3 K/uL (1.8-7.7); PLATELET COUNT (AUTO) 371 K/uL (150-450); RED BLOOD CELL COUNT(AUTO) 3.76 MIL/uL (4.00-5.20); RED CELL DISTRIBUTION WIDTH 19.2 % (11.5-14.5)
[2020-03-20 06:27] LABS: CALCIUM, TOTAL 8.1 mg/dL (8.8-10.5); CREATININE 6.95 mg/dL (0.60-1.30); POTASSIUM 4.8 mmol/L (3.5-5.1)
[2020-03-20] MEDS: LANTHANUM CARBONATE 500 MG CHEW TABLET PO SCH ×2 (08:00→12:00)
[2020-03-20] MEDS: DOCUSATE SODIUM 100 MG CAPSULE PO SCH (09:00)
[2020-03-20] MEDS: ALBUTEROL SULFATE 2.5 MG/0.5 ML NEB SOLUTION NEB PRN (10:04)
[2020-03-20] MEDS ORDERED: OSELTAMIVIR PHOSPHATE 75 MG CAPSULE PO ONE (11:30)
[2020-03-20] MEDS: ASPIRIN 81 MG CHEWABLE TABLET PO SCH (11:40)
[2020-03-20] MEDS: TICAGRELOR 90 MG TABLET PO SCH (11:40)
[2020-03-20] MEDS: ATORVASTATIN CALCIUM 40 MG TABLET PO SCH (11:40)
[2020-03-20] MEDS: NIFEdipine 30 MG ER TABLET PO SCH (11:40)
[2020-03-20] MEDS: PANTOPRAZOLE SODIUM 40 MG DR TABLET PO SCH (11:41)
[2020-03-20] MEDS: MINOXIDIL 2.5 MG TABLET PO SCH (11:41)
[2020-03-20] MEDS: CARVEDILOL 25 MG TABLET PO SCH (11:41)
[2020-03-20] MEDS: HEPARIN SODIUM,PORCINE 5,000 UNITS/ML VIAL SQ SCH (11:41)
[2020-03-20 11:53] VITALS: BP 151/67
[2020-03-20] MEDS ORDERED: OSEL75 PO (12:18)
== END 2020-03-20 13:10 | disposition home or self-care (01) | DRG 193 ==
LOC: EMS 11:04 → 5N 14:18 → 5S 03-18 21:38
PROVIDERS: ADMIT Internal Medicine; ATTEND Internal Medicine
PROC: 5A1D70Z Performance of Urinary Filtration, Intermittent, Less than 6 Hours Per Day (ICD-10-PCS; principal; 2020-03-18)
DX: J10.08 Influenza due to other identified influenza virus with other specified pneumonia (principal); N18.6 End stage renal disease; E43 Unspecified severe protein-calorie malnutrition; J96.21 Acute and chronic respiratory failure with hypoxia; R65.10 Systemic inflammatory response syndrome (SIRS) of non-infectious origin without acute organ dysfunction; Z68.1 Body mass index [BMI] 19.9 or less, adult; I13.2 Hypertensive heart and chronic kidney disease with heart failure and with stage 5 chronic kidney disease, or end stage renal disease; J44.0 Chronic obstructive pulmonary disease with (acute) lower respiratory infection; J44.1 Chronic obstructive pulmonary disease with (acute) exacerbation; E78.5 Hyperlipidemia, unspecified; F41.9 Anxiety disorder, unspecified; I25.10 Atherosclerotic heart disease of native coronary artery without angina pectoris; Z88.8 Allergy status to other drugs, medicaments and biological substances; Z99.2 Dependence on renal dialysis; D63.1 Anemia in chronic kidney disease; E83.39 Other disorders of phosphorus metabolism; Z87.891 Personal history of nicotine dependence; J84.10 Pulmonary fibrosis, unspecified; Z20.828 Contact with and (suspected) exposure to other viral communicable diseases; I50.9 Heart failure, unspecified; E87.5 Hyperkalemia; Z95.5 Presence of coronary angioplasty implant and graft; Z99.81 Dependence on supplemental oxygen; N05.9 Unspecified nephritic syndrome with unspecified morphologic changes
CPT/HCPCS: 83605; 83735; 84145; 85379; 85384; 86140; 87040; 87081; 87340; 87426; 87804; 93005; 94640; J1644; J2405; J2920; J3490; J3535; J7030; 36415-L1; 36415-TC; 71045-TC; J7613; U0003-CS